=== PATIENT | male | born 1955 | race Caucasian/White ===

== ENCOUNTER → 2017-03-20 05:55 | Outpatient (CLI) | payer MEDICARE, SELFPAY ==
--- NOTE | 2017-03-20 10:59 | STRESSREP ---
Stress Test Report Date: 03/20/2017 Procedure: Pharmacologic stress nuclear imaging study Indications: Atrial fibrillation; preoperative cardiovascular evaluation Consent: Per the patient Procedure: The patient underwent pharmacologic (Regadenoson) evaluation with a peak heart rate of 100 bpm (63% predicted maximal heart rate) with a peak blood pressure 156/102 mmHg. The baseline ECG demonstrated normal sinus rhythm. The peak pharmacologic ECG demonstrated no obvious ECG changes. There were no cardiac dysrhythmias pretest or during infusion. There was rare PACs in recovery. There was no report of chest discomfort during pharmacologic infusion or recovery. The examination was discontinued secondary to completion of protocol. Impression: 1. Pharmacologic (Regadenoson) evaluation 2. Peak pharmacologic ECG with no obvious ECG changes 3. Rare PAC during recovery 4. Nuclear images pending Myocardial perfusion imaging study: Technique: The patient was injected with 14.4 mCi of technetium 99m Cardiolite and subsequently rest SPECT Cardiolite nuclear imaging was obtained in the horizontal long, vertical long, and short axis views. The patient underwent pharmacologic (Regadenoson) evaluation with a peak heart rate of 100 bpm (63% predicted maximal heart rate) with a peak blood pressure 156/102 mmHg area the patient was injected with 44.1 mCi of technetium 99m Cardiolite and subsequently stress SPECT Cardiolite nuclear imaging was obtained in the horizontal long, vertical long, and short axis views. A gated Cardiolite study at peak stress was obtained. Interpretation: Rest and stress SPECT cardiac nuclear imaging status post realignment, normalization, and attenuation correction demonstrates the appearance of relative uniform tracer uptake and myocardial perfusion appearing within normal limits. There is end systolic thickening and brightening. The gated Cardiolite study demonstrates myocardial thickening and inward wall motion. The reported LVEF is 76%. Impression: 1. Rest and stress SPECT Cardiolite nuclear imaging demonstrate relative uniform tracer uptake and myocardial perfusion appearing within normal limits. 2. The gated Cardiolite study reports an LVEF of 76%. This note was generated with [employer] software. Every effort was made to ensure accuracy, however, computerized auto dealership porter mistakes may persist.
--- NOTE | 2017-03-20 11:06 | STRESSREP_ITS ---
Stress Test Report Date: 03/20/2017 Procedure: Pharmacologic stress nuclear imaging study Indications: Atrial fibrillation; preoperative cardiovascular evaluation Consent: Per the patient Procedure: The patient underwent pharmacologic (Regadenoson) evaluation with a peak heart rate of 100 bpm (63% predicted maximal heart rate) with a peak blood pressure 156/102 mmHg. The baseline ECG demonstrated normal sinus rhythm. The peak pharmacologic ECG demonstrated no obvious ECG changes. There were no cardiac dysrhythmias pretest or during infusion. There was rare PACs in recovery. There was no report of chest discomfort during pharmacologic infusion or recovery. The examination was discontinued secondary to completion of protocol. Impression: 1. Pharmacologic (Regadenoson) evaluation 2. Peak pharmacologic ECG with no obvious ECG changes 3. Rare PAC during recovery 4. Nuclear images pending Myocardial perfusion imaging study: Technique: The patient was injected with 14.4 mCi of technetium 99m Cardiolite and subsequently rest SPECT Cardiolite nuclear imaging was obtained in the horizontal long, vertical long, and short axis views. The patient underwent pharmacologic (Regadenoson) evaluation with a peak heart rate of 100 bpm (63% predicted maximal heart rate) with a peak blood pressure 156/102 mmHg area the patient was injected with 44.1 mCi of technetium 99m Cardiolite and subsequently stress SPECT Cardiolite nuclear imaging was obtained in the horizontal long, vertical long, and short axis views. A gated Cardiolite study at peak stress was obtained. Interpretation: Rest and stress SPECT cardiac nuclear imaging status post realignment, normalization, and attenuation correction demonstrates the appearance of relative uniform tracer uptake and myocardial perfusion appearing within normal limits. There is end systolic thickening and brightening. The gated Cardiolite study demonstrates myocardial thickening and inward wall motion. The reported LVEF is 76%. Impression: 1. Rest and stress SPECT Cardiolite nuclear imaging demonstrate relative uniform tracer uptake and myocardial perfusion appearing within normal limits. 2. The gated Cardiolite study reports an LVEF of 76%. This note was generated with [employer] software. Every effort was made to ensure accuracy, however, computerized turf manager mistakes may persist.
== END ==
PROVIDERS: Family Provider Family Medicine; PCP Family Medicine; Visit Provider Internal Medicine Cardiovascular Disease
DX: Z01.810 Encounter for preprocedural cardiovascular examination (principal); I48.91 Unspecified atrial fibrillation
CPT/HCPCS: 78452; 93017; A9500; A4216; J2785

== ENCOUNTER → 2017-06-11 12:57 | Outpatient (CLI) | payer MEDICARE, SELFPAY ==
--- NOTE | 2017-06-11 12:59 | RAD_ITS ---
STUDY: X-RAY - PELVIS AND RIGHT HIP REASON FOR EXAM: Male, 62 years old. Right hip pain TECHNIQUE: Radiological exam, hip, unilateral, with pelvis when performed; 2 or 3 views. COMPARISON: None. FINDINGS: There is a non-specific bowel gas pattern. Normal visualized soft tissue structures. Normal bilateral iliac wings, sacroiliac joints and visualized sacrum. Normal bilateral superior and inferior pubic rami. Normal pubic symphysis. Normal bilateral ischial tuberosities. Normal visualized femoral head. Normal acetabulum. Normal hip joint. RAD/Hip 2-3 Views with Pelvis IMPRESSION: Normal x-ray examination of the pelvis and hip. Electronically Signed: Dimitrios Hull MD at 17:21 EDT , Service support ,
== END ==
PROVIDERS: Family Provider Family Medicine; PCP Family Medicine; Visit Provider Orthopaedic Surgery
DX: M25.551 Pain in right hip (principal)
CPT/HCPCS: 73502

== ENCOUNTER 2017-06-21 19:33 | Emergency (ER) | payer MEDICARE, SELFPAY ==
[2017-06-21 19:34] VITALS: BP 127/102; PULSE 93; RESP 20; TEMP 36.3; BMI 33.5
[2017-06-21] MEDS: morphine 8 MG/ML Syringe IM (20:04)
--- NOTE | 2017-06-21 20:14 | ED.DCSUM_ITS ---
- ER Visit Summary Date of Service: 06/21/17 Chief Complaint: Back and leg pain History of Present Illness: The patient is a 62 M presenting with chronic back and leg pain. He states he has low back pain radiating to both legs. He is in pain management with Dr. Headley. He states he has injections in his back which typically help his pain. He states the injection has worn off. He takes Vicodin and only has 2-3 pills left. He has an appointment with Dr. Headley on Friday. He has an MRI scheduled on Friday and then will follow up with Dr. Salamanca. He denies any bowel or bladder incontinence. No numbness or weakness. No recent injury. No fever, chills or other complaints. Physical Examination: Vitals are stable. Patient is afebrile. Alert no acute distress. HEENT exam is unremarkable. Neck is supple. Lungs are clear and equal bilaterally. Heart is regular rate and rhythm. Abdomen is soft nontender nondistended. Back: Low bilateral paraspinal lumbar muscle tenderness, no midline tenderness. Straight leg raise positive at 30? on the right. Extremities are unremarkable. Skin is warm and dry. No focal neurologic deficit. Normal strength and sensation Remainder of exam is unremarkable. Emergency Department Course and Treatment: Patient is given morphine, Zofran IM. He is advised to follow-up with pain management. Advised return to ED for worsening complaints. Disposition: Discharge home Impression: Acute on chronic back pain This note was generated with [employer] dictation software. It may contain incorrect words, spelling, and punctuation that were not noted in review of the chart prior to signing ED Disposition - Plan for ED Patient: Chief Complaint: Lower Extremity Injury Referrals: Prateek Lucio MD [Primary Care Provider] -
--- NOTE | 2017-06-21 20:38 | ED.DEP ---
ED Disposition - Plan for ED Patient: Chief Complaint: Lower Extremity Injury Instructions: ED Chronic Pain Management Referrals: Prateek Lucio MD [Primary Care Provider] - Beth Headley MD [STAFF PHYSICIAN] -
[2017-06-21 20:46] VITALS: BP 164/108; PULSE 74; RESP 18; O2SAT 97
== END 2017-06-21 20:48 | disposition home or self-care (01) ==
LOC: ED 20:17
PROVIDERS: Emergency Provider Emergency Medicine; Family Provider Family Medicine; PCP Family Medicine
DX: M54.5 Low back pain (principal); G89.29 Other chronic pain; M79.604 Pain in right leg; M79.605 Pain in left leg; G47.30 Sleep apnea, unspecified; Z72.0 Tobacco use; Z79.899 Other long term (current) drug therapy
CPT/HCPCS: 96372; 99282

== ENCOUNTER 2017-06-22 09:08 | Emergency (ER) | payer MEDICARE, SELFPAY ==
[2017-06-22 09:09] VITALS: BP 156/111; PULSE 81; RESP 18; TEMP 36.9; O2SAT 96; BMI 30.4
--- NOTE | 2017-06-22 09:27 | ED.DCSUM_ITS ---
- ER Visit Summary Date of Service: 06/22/17 Chief Complaint: [] Acute recurrent right low back pain History of Present Illness: The patient is a 62 M [] patient is a long history of low back pain multiple other arthritic complaints, a titanium plate in his right leg he is managed by multiple physicians including Dr. de león of pain management, he indicates he receives 50 different type of injections to his body secondary to all the pain that he has usually received a lumbar spine injection every 3 months that helps with his back pain, he is due to have that injection soon, he also reports the pain from his lumbar back radiates to his right leg he seen orthopedics and has been told the muscle there may have atrophied or there could be a problem with the muscle and he is scheduled to have an MRI next week he basically indicates he has recurrence of his pain since last lumbar back injection was 3 months ago he scheduled to see his pain management physician tomorrow he reports he was seen yesterday in the emergency department had injection of morphine that wore off and he wants to be remedicated he indicates these are not new symptoms are all the same he has had no fever cough chest pain no difficulty with any of his daily activities usually walks with a cane normal bowel bladder habits Physical Examination: [] In no distress he is up walking around the room with his cane he has difficulty standing on his toes because of the plate in his leg he can heel raise knee bend walk around the room is no signs of cauda equina he basically takes his hand and draws across the right buttock into the thigh he has full range of motion of the right lower extremity and left lower extremity there is no neurologic abnormalities no signs of cauda equina his lungs are clear heart tones are normal abdomen soft nontender his upper lower extremity exam cranial nerve exam head exam unremarkable Test Results: [] Emergency Department Course and Treatment: [] I had a long conversation with this patient I explained to him that this seems like a chronic condition and the chronic pain management cannot be assumed from the emergency department secondary to multiple regulations from the state [facility] etc. and that if he needs pain management he must obtain that from his outpatient physicians given that it is the weekend and he cannot reach them he will be medicated with morphine 8 mg subcu ?1 and I further explained to him should he return to the emergency department it is likely that we will not be able at that time to provide him any type of further narcotic pain management he understands and agrees Treatment Plan: [] Disposition: [] Home stable Impression: [] Acute recurrent lumbar spine pain, history of chronic pain see above This note was generated with [employer] dictation software. It may contain incorrect words, spelling, and punctuation that were not noted in review of the chart prior to signing ED Disposition - Plan for ED Patient: Chief Complaint: Lower Extremity Injury Referrals: Prateek Lucio MD [Primary Care Provider] -
--- NOTE | 2017-06-22 09:27 | ED.DEP ---
ED Disposition - Plan for ED Patient: Chief Complaint: Lower Extremity Injury Instructions: ED Sciatica Referrals: Prateek Lucio MD [Primary Care Provider] -
[2017-06-22] MEDS: morphine 8 MG/ML Syringe SC (09:35)
[2017-06-22] MEDS: Ondansetron ODT 4 MG Tablet PO (09:35)
[2017-06-22 10:02] VITALS: BP 158/92; PULSE 87; RESP 16; O2SAT 100
== END 2017-06-22 10:03 | disposition home or self-care (01) ==
PROVIDERS: Emergency Provider Emergency Medicine; Family Provider Family Medicine; PCP Family Medicine
DX: M54.5 Low back pain (principal); G89.29 Other chronic pain; M19.90 Unspecified osteoarthritis, unspecified site; Z96.89 Presence of other specified functional implants; Z79.82 Long term (current) use of aspirin; Z79.899 Other long term (current) drug therapy
CPT/HCPCS: 96372; 99282

== ENCOUNTER → 2017-06-24 06:43 | Outpatient (CLI) | payer MEDICARE, SELFPAY ==
--- NOTE | 2017-06-24 06:45 | MRI_ITS ---
STUDY: MRI RIGHT HIP REASON FOR EXAM: Male, 62 years old. Femoral acetabular impingement with gluteal tendinitis of the right buttock and right hip pain. TECHNIQUE: Standardized fat and water weighted pulse sequences were obtained in all 3 orthogonal planes. COMPARISON: Radiographs of pelvis and right hip dated June 11, 2017. FINDINGS: There is mild articular narrowing of the hip joint, with less than 50% loss of the hyaline cartilage. There is irregular contour to the superior acetabulum suggesting sequela of degenerative change. Normal labrum. There is focal contour deformity of the anterior femoral neck, likely predisposing the patient to femoral acetabular impingement. There are also osteophytes arising from the femoral head. Normal femoral neck and intratrochanteric region. There is a small right hip effusion. Normal gluteus minimus, medius and iliopsoas tendons and distal insertions. There is no trochanteric, iliopsoas or iliopectineal bursitis. Normal superior and inferior pubic rami. There is narrowing of the pubic symphysis with spurring. Normal ischial tuberosity. Normal origin of the hamstring tendons. Normal visualized iliac wing, sacroiliac joint, and sacral ala. There mild degenerative changes of the left hip with osteophyte formation and joint space narrowing. Normal visualized soft tissue structures of the pelvis. MRI/Lower Ext Joint Only (Routine) IMPRESSION: 1. MR findings suggest sequela of and predisposition to right-sided femoral acetabular impingement. 2. Small right hip effusion. Electronically Signed: Jesenia Link MD at 12:02 EDT , Service support ,
== END ==
PROVIDERS: Family Provider Family Medicine; PCP Family Medicine; Visit Provider Orthopaedic Surgery
DX: M76.01 Gluteal tendinitis, right hip (principal); M25.859 Other specified joint disorders, unspecified hip
CPT/HCPCS: 73721

== ENCOUNTER 2017-07-26 15:37 | Emergency (ER) | payer MEDICARE, SELFPAY ==
--- NOTE | 2017-07-26 15:37 | DT_ITS ---
This patient was seen during an EMR downtime July 21, 2017 - July 28, 2017. This patient may have a combination of paper and electronic documentation or all paper documentation. All documentation is viewable within the e-chart portion of [facility] for each patient visit.
== END 2017-07-26 16:05 | disposition home or self-care (01) ==
LOC: ED 07-27 14:17
PROVIDERS: Emergency Provider Emergency Medicine; Family Provider Family Medicine; PCP Family Medicine
DX: M25.551 Pain in right hip (principal); M54.9 Dorsalgia, unspecified; G47.33 Obstructive sleep apnea (adult) (pediatric); M19.90 Unspecified osteoarthritis, unspecified site; Z79.891 Long term (current) use of opiate analgesic
CPT/HCPCS: 96372; 99283

== ENCOUNTER 2017-07-28 11:31 | Emergency (ER) | payer MEDICARE, SELFPAY ==
--- NOTE | 2017-07-28 11:31 | DT_ITS ---
This patient was seen during an EMR downtime July 21, 2017 - July 28, 2017. This patient may have a combination of paper and electronic documentation or all paper documentation. All documentation is viewable within the e-chart portion of [facility] for each patient visit.
[2017-07-28 11:33] VITALS: BP 170/81; PULSE 92; RESP 16; TEMP 35.8; BMI 32.6
--- NOTE | 2017-07-28 12:19 | ED.VIS.GEN ---
History of Present Illness Chief Complaint: Back Informant: Patient, Family Onset: Days - 4 Context: Gradual Onset Timing: Continuous Quality: ache Location: Right low back and hip with radiation down the right lower extremity to ila Current Severity: Severe Maximum Severity: Severe Worsened by: Weightbearing/movement Relieved by: Rest, Dilaudid Associated Symptoms: Sciatica. No bowel or bladder dysfunction, no groin paresthesias. Narrative: Patient has chronic low back and hip pain with sciatica that has been worse for no apparent reason for the past 4 days or so. He was seen here recently and had a shot of Dilaudid which really helped, and actually kept him comfortable for a couple of days, but the pain is worse now again. Same symptoms, nothing new. No recent injury. Is following with Dr. Salinas with orthopedics for this, and is being scheduled for arthroscopic hip surgery with repair of gluteus medius and minimus, bursectomy, and release of iliotibial band. He follows with Dr. Headley as well. Prior similar symptoms: Yes - Past Medical History (1) Sciatica Status: Chronic (2) Bursitis of right hip Status: Chronic (3) Essential hypertension Status: Chronic (4) Paroxysmal a-fib Status: Chronic (5) Arthritis Status: Chronic (6) Cervical spine degeneration Status: Chronic (7) Cervical spondylosis Status: Chronic Past Medical History - Allergies and Home Meds Allergies/Adverse Reactions: Allergies oxycodone HCl [From Percocet] Adverse Reaction (Verified 07/28/17 11:34) Vomiting Primary Care Physician: Prateek Lucio MD [Primary Care Provider] - Prabhakar Adair MD [NON-STAFF] - Keep Caryl appointment Lives: Spouse/ Significant Other Smoking Status: Smoker, status unknown - Family History Maternal Family History: Family History (Last Reviewed 06/11/17 @ 15:25 by Mack Edwards) Mother Cancer Father CVA (cerebral vascular accident) Family History: Reports: No pertinent history Review of Systems All systems negative except as indicated Musculoskeletal: Reports: Back pain, Extremity Pain - R hip and groin Physical Exam Vital Signs/Narrative: Vital Signs Temp Pulse Resp BP 07/28/17 11:33 96.4 F L 92 16 170/81 H Inital Vital Signs reviewed: Yes General: Well nourished, Well developed, - - Uncomfortable in pain, NAD. Head: Normocephalic, Atraumatic Eyes: Perrl, EOMI ENT: Moist mucous membranes, No rhinorrhea Abdomen: Soft, Nontender, Nondistended Extremities: Tenderness - R greater trochanter very tender. easy passive ROM R hip w/o significant pain. Skin: Normal color, No rash Neurological: Alert, Oriented x3, Cranial nerves II-XII grossly intact, Normal Strength, Normal Sensation, Normal DTR, - - antalgic gait, uses cane, able. Psychological: Normal affect Diagnostic/Tx/Re-eval - Medical Decision Making Improved after Dilaudid and prophylactic Zofran. We will continue to follow-up as scheduled tomorrow. There are no signs or symptoms of cauda equina syndrome to require emergent imaging of this, he states he has had an MRI in the recent past, which helped to diagnose his issues. ED Disposition - Plan for ED Patient: Disposition: Home or Assisted Living Chief Complaint: Back Diagnosis: Acute exacerbation of chronic low back pain, Bursitis of right hip Instructions: ED Sciatica, ED Bursitis Referrals: Prateek Lucio MD [Primary Care Provider] - Prabhakar Adair MD [NON-STAFF] - Keep Caryl appointment
--- NOTE | 2017-07-28 12:54 | ED.RN ---
unable to obtain dilaudid . pharmacy states please use 0.5 mg. verified with eleno argueta
[2017-07-28] MEDS: HYDROmorphone 0.5 MG/0.5 ML SYRINGE 2 MG IM (12:56)
[2017-07-28] MEDS: Ondansetron ODT 4 MG Tablet 8 MG PO (13:19)
== END 2017-07-28 14:11 | disposition home or self-care (01) ==
LOC: ED 12:36
PROVIDERS: Emergency Provider Emergency Medicine; Family Provider Family Medicine; PCP Family Medicine
DX: M54.40 Lumbago with sciatica, unspecified side (principal); G89.29 Other chronic pain; M70.71 Other bursitis of hip, right hip; Y93.9 Activity, unspecified; M50.30 Other cervical disc degeneration, unspecified cervical region; M47.812 Spondylosis without myelopathy or radiculopathy, cervical region; I10 Essential (primary) hypertension; I48.0 Paroxysmal atrial fibrillation; M19.90 Unspecified osteoarthritis, unspecified site; F17.200 Nicotine dependence, unspecified, uncomplicated
CPT/HCPCS: 96372; 99283

== ENCOUNTER 2017-08-04 19:11 | Emergency (ER) | payer MEDICARE, SELFPAY ==
[2017-08-04 19:12] VITALS: BP 155/109; PULSE 68; RESP 16; TEMP 36.3; O2SAT 97; BMI 33.4
--- NOTE | 2017-08-04 21:42 | ED.RN ---
PT NAME CALLED AT 2100 WITH NO RESPONSE. CHECKED ER RAMP AND WAITING ROOM. PT MARKED LWBS
== END 2017-08-04 21:45 | disposition left against medical advice (07) ==
LOC: ED 22:28
PROVIDERS: Emergency Provider Emergency Medicine; Family Provider Family Medicine; PCP Family Medicine
DX: M79.606 Pain in leg, unspecified (principal); M79.1 Myalgia; G89.29 Other chronic pain

== ENCOUNTER 2017-12-09 10:00 | Outpatient (RCR) | payer MEDICARE, SELFPAY ==
--- NOTE | 2017-10-23 11:08 | HP.PTEVAL ---
Patient's Visit Information IVAN PETERS is a 62 year old M referred to Physical Therapy by Georges Mccauley with a diagnosis of Hip scope with glute medius repair. Date of Evaluation: 10/22/17 Physical Therapist: Viral Diallo - Visit Plan Frequency: 1-2x /Week Duration: 8 weks Plan: Start with R hip ROM, gait progression. Progress per protocol. Pt. requested to trial pool. I talked to him about requesting this intervention from physician. I agree with pool for a few weeks to progress gait tolerance and ROM. Progressing to land per protocol. Requested this intervention from physician this date. - Subjective Subjective: Pt. is here today for his initial evaluation with diagnosis of R glute med tear with surgical repair. Pt. had surgery on 08/21/17 and had been doing PT at alternate site. Pt. wanted to start doing his PT closer to home. Pt. arrives today with crutches and has been using since surgery. He also reports recent L foot pain after have bones shifted during PT. Pt. had xray without fracture. Pt. reports using WC at times as well. He denies N/T in either LE, except for peripheral neuropathy in feet. He has a history of DDD throughout his spine. He reports doign some stretching at home, but not much. He was doing to PT weekly previously. Pt. continues to report having posterior lateral hip pain with all mobility. He is doing most activities in his hope without issues. Pt. only walks short distances secondary to pain and will use motor wc in grocery stores and standard wc with larger community mobility. Pt. is hopeful to reduce symptoms in order to get back to all recreational activtieis without issues. - Pain R hip Pain Intensity (Out of 10): 4 Pain Intensity Range: 0, 8 L foot Pain Intensity (Out of 10): 4 Pain Intensity Range: 2, 8 - Objective POSTURE: Pt. is able to stand without ADs with wt. L sided wt. shift. Pt. reports no increase in hip pain in stance, but does have increased L foot pain. PALPATION: Pt. has well healing incisions as R hip, he has steristrips on anterior incisions. No signs of infection. Pt. has increased tenderness at lateral hip and greater trochanter. Pt. has no IT band pain and no glute max tenderness. NEURO: normal sensation except bilateral feet (baseline). Pt. has 2+ patellar and achilles DTR bilateraly. Pt. is able to rise on heels and toes with balance aid, increased with toes on LLE. ROM: R hip- flexion 120deg, abd 45deg, ext 10deg, IR 10deg increase NW, ER 45eg (tightness). Pt. has normal L hip ROM. Normal bilateral knee ROM. Decreased lumbar ROM into all motions. MMT: LLE- ankle 5/5 throughout; knee- 5-/5; hip- flexion 4/5 abd 4/5, ext 4/5. RLE- ankle 5/5 throughout; knee- ext 5-/5, felxion 5-/5; hip- flexion 4-/5, abd 3/5 ext 4-/5 Pt. reports mild increase in symptoms with all MMT of R hip. GAIT: Pt. uses B crutches with ambulation. He is increasing WBing on bilateral LEs, but is unwilling to trial single crutch at this point in time. Pt. has decreased step length bilaterally. Pt. has not [place] movements. Pt. did not trial stairs this date. - Goals Goal 1:: Pt. to be I with HEP. Goal Time Frame: 4-6 Weeks Goal 2:: Pt. to have full R hip ROM without increase in symptoms. Goal Time Frame: 4-6 Weeks Goal 3:: Pt. to have increased R hip strength by 1/2 grade in order to complete all functional mobility with increased stability/control. Goal Time Frame: 4-6 Weeks Goal 4:: Pt. to ambuate without AD unlimited distances without increase in symptoms. Goal Time Frame: 4-6 Weeks Goal 5:: Pt. to negotiate steps with 1 HR with reciprocal pattern without increase in symptoms. Goal Time Frame: 4-6 Weeks Goal 6:: Pt. sleep throughout the night without increase in symptoms. Goal Time Frame: 4-6 Weeks - Rehabilitation Potential Physical Therapy Diagnosis: Pt. has signs and symptoms consistent with glute medius repair. He is slightly behing in his recovery, but as expected due to multiple co morbidities. Pt. had difficulty walking, increased pain, decreased strength and decreased functional mobility. He would benefit from PT to address above limitations. Rehabilitation Potential: Good - Anticipated Interventions Patient/Client Instruction: Educate patient on: Condition, Plan of Care, Risk Factors, Benefits of Fitness Program For the Purpose of:: To improve safety, To improve health and function, To foster healthy habits, To improve decision making, To improve self management, To prevent re-injury, To improve ability to perform tasks related to life management, To improve tolerance to ADL's Therapeutic Exercise to Include: Strength training, Power training, Endurance training, Body mechanics, Postural training, Flexibilty training, Gait and locomotor training, In an aquatic setting, Passive ROM, Active ROM For the Purpose of:: To decrease pain, To decrease swelling/inflammation, To increase ROM, To improve nutrient delivery to tissue, To improve muscle performance and motor function, To improve ability to perform ADL's, To increase tolerance to activity/condition/position, To improve gait and locomotor functions, To improve health of tissue, To decrease soft tissue restriction, To increase flexibility/ROM, To improve safety with gait TENS: Yes IF ES: Yes Cryotherapy (ice pack, ice massage): Yes For the Purpose of:: To decrease pain, To decrease swelling/inflammation, To increase ROM Thank you for the opportunity to evaluate your patient. For Medicare and Medicare HMO plans, please review the plan of care and approve it. It will need to be FAXED BACK to us at [phone] for Medicare purposes. Please let me know if there are questions or concerns regarding this plan of care. Physician Signature: Date:
--- NOTE | 2017-12-09 15:31 | HP.PTREVAL_ITS ---
Georges Mccauley, It has been my pleasure to treat IVAN PETERS over the last 3 visits for Hip scope with glute medius repair. Please see the progress note below for an update on the physical therapy plan of care! Subjective: Pt. reports I am just sore all over. Pt. reports having 5/10 pain in hip and back. Pt. reports being HEP compliant at times. He did miss the last 3 weeks due to having pneumonia. Pt. reports feeling better. Objective/Function: R hip ROM- flexion 120deg, abd 45deg, ext 10deg, ER 45deg, IR 30deg. Pt. reports mild increase in symptoms with abduction and ER motions. MMT- R hip- flexion 4+/5, abd 4/5, ext 4/5, add 5/5. Core strength- poor+. GAIT: Pt. ambulates with a cane HALINA. Pt. has increased step length and increased control. Decrease lateral hip translation during stance phase. STAIRS: Pt. uses 1 HR with reciprocal pattern without issues. Plan Plan: Extend time for POC. Requesting extended time to complete POC due to patient being seick for 3 weeks missing PT during this time. Focus on hip core stability exercses. Goals Goal 1:: Pt. to be I with HEP. Goal Time Frame: 4-6 Weeks Goal Progress: Goal Met Goal 2:: Pt. to have full R hip ROM without increase in symptoms. Goal Time Frame: 4-6 Weeks Goal Progress: Goal Met Goal 3:: Pt. to have increased R hip strength by 1/2 grade in order to complete all functional mobility with increased stability/control. Goal Time Frame: 4-6 Weeks Goal Progress: Progressing Goal 4:: Pt. to ambuate without AD unlimited distances without increase in symptoms. Goal Time Frame: 4-6 Weeks Goal Progress: Progressing Goal 5:: Pt. to negotiate steps with 1 HR with reciprocal pattern without increase in symptoms. Goal Time Frame: 4-6 Weeks Goal Progress: Progressing Goal 6:: Pt. sleep throughout the night without increase in symptoms. Goal Time Frame: 4-6 Weeks Goal Progress: Progressing Anticipated Interventions Patient/Client Instruction: Educate patient on: Condition, Plan of Care, Risk F actors, Benefits of Fitness Program For the Purpose of:: To improve safety, To improve health and function, To foster healthy habits, To improve decision making, To improve self management, To prevent re-injury, To improve ability to perform tasks related to life management, To improve tolerance to ADL's Therapeutic Exercise to Include: Strength training, Power training, Endurance training, Body mechanics, Postural training, Flexibilty training, Gait and locomotor training, In an aquatic setting, Passive ROM, Active ROM For the Purpose of:: To decrease pain, To decrease swelling/inflammation, To increase ROM, To improve nutrient delivery to tissue, To improve muscle performance and motor function, To improve ability to perform ADL's, To increase tolerance to activity/condition/position, To improve gait and locomotor functions, To improve health of tissue, To decrease soft tissue restriction, To increase flexibility/ROM, To improve safety with gait TENS: Yes IF ES: Yes Cryotherapy (ice pack, ice massage): Yes For the Purpose of:: To decrease pain, To decrease swelling/inflammation, To increase ROM Please do not hesitate to contact me at [phone] by phone or if you have questions or concerns regarding this new plan of care! Sincerely, Viral Diallo
--- NOTE | 2018-05-22 09:43 | HP.PT.NRP ---
HP - Discharge Summary (1) - Patient Information IVAN PETERS was seen in my office for initial evaluation on 10/22/17. The following Plan of Care was established for this patient: Initial Frequency: 1-2x /Week Initial Duration: 8 weks - Anticipated Interventions Patient/Client Instruction: Educate patient on: Condition, Plan of Care, Risk Factors, Benefits of Fitness Program For the Purpose of:: To improve safety, To improve health and function, To foster healthy habits, To improve decision making, To improve self management, To prevent re-injury, To improve ability to perform tasks related to life management, To improve tolerance to ADL's Therapeutic Exercise to Include: Strength training, Power training, Endurance training, Body mechanics, Postural training, Flexibilty training, Gait and locomotor training, In an aquatic setting, Passive ROM, Active ROM For the Purpose of:: To decrease pain, To decrease swelling/inflammation, To increase ROM, To improve nutrient delivery to tissue, To improve muscle performance and motor function, To improve ability to perform ADL's, To increase tolerance to activity/condition/position, To improve gait and locomotor functions, To improve health of tissue, To decrease soft tissue restriction, To increase flexibility/ROM, To improve safety with gait TENS: Yes IF ES: Yes Cryotherapy (ice pack, ice massage): Yes For the Purpose of:: To decrease pain, To decrease swelling/inflammation, To increase ROM This patient was last seen in our office 12/09/17. Pertinent comments regarding their Physical therapy will appear below: Pt. was evaluated for her hip labral repair. Pt. was to do therapy in aquatic setting. Pt. attended 1 visit over a 1 month period due to illness and did not attend any further PT visits. Pt. has not been seen in several months and will be DC from PT at this point in time. At this point I will be discontinuing this patient from physical therapy. I would be happy to see this patient again in the future if found appropriate by the physician. Thank you! YOLANDA CarrionT
== END 2017-12-09 19:00 | disposition home or self-care (01) ==
LOC: PT 10:00
PROVIDERS: Family Provider Family Medicine; PCP Family Medicine; Visit Provider Orthopaedic Surgery Sports Medicine
DX: M67.98 Unspecified disorder of synovium and tendon, other site (principal)
CPT/HCPCS: 97113; 97162

== ENCOUNTER → 2018-07-02 11:38 | Outpatient (CLI) | payer MEDICARE, SELFPAY ==
[2018-06-25 14:30] VITALS: BMI 33.1
--- NOTE | 2018-07-02 11:44 | CT_ITS ---
STUDY: CT ABDOMEN AND PELVIS WITH CONTRAST REASON FOR EXAM: Male, 63 years old. Right inguinal hernia RADIATION DOSAGE (If Supplied By Facility): CTDIvol = ( 21.93 ) mGy, DLP = ( 1923.98 ) mGycm TECHNIQUE: Transaxial images were obtained from the dome of the diaphragm to the symphysis pubis with oral contrast. 100CC IV/Oral Isovue 300 was administered. Sagittal and coronal images were reconstructed. Individualized dose optimization techniques were used for this CT. COMPARISON: None. FINDINGS: The visualized lung bases are unremarkable. The visualized portions of the heart are within normal limits. There is decreased attenuation of the liver consistent with steatosis. Subcentimeter cyst in the right hepatic lobe. Probable cholelithiasis. Normal spleen. Normal pancreas. Normal bilateral adrenal glands. Normal right kidney. Left peripelvic renal cysts. Normal visualized stomach. Normal small intestine. There are multiple colonic diverticula consistent with diverticulosis. The appendix is visualized and appears normal. Normal abdominal aorta. Normal inferior vena cava. Normal retroperitoneum. Normal urinary bladder. There are prostatic calcifications. 35 x 17 mm sebaceous cyst in the subcutaneous tissues of the right side of the back. Lower abdominal wall hernia mesh. Normal osseous structures. CT/Abdomen/Pelvis WITH Contrast IMPRESSION: No evidence of recurrent or residual inguinal hernia. No evidence of acute intestinal pathology or acute obstructive uropathy. Probable cholelithiasis. Electronically Signed: Saurabh Oviedo MD at 23:35 EDT Tel , Service support ,
[2018-07-02 13:56] LABS: CREATININE FINGERSTICK 1.2 mg/dL (0.70-1.30)
== END ==
PROVIDERS: Family Provider Family Medicine; PCP Family Medicine
DX: Z01.812 Encounter for preprocedural laboratory examination (principal); K40.91 Unilateral inguinal hernia, without obstruction or gangrene, recurrent
CPT/HCPCS: 74177; Q9967

== ENCOUNTER → 2018-09-04 09:59 | Outpatient (CLI) | payer MEDICARE, SELFPAY ==
[2018-06-25 14:30] VITALS: BMI 33.1
--- NOTE | 2018-09-04 10:05 | RAD_ITS ---
STUDY: X-RAY - PELVIS REASON FOR EXAM: Male, 63 years old. Inflammatory polyarthropathy. TECHNIQUE: One view of the pelvis was obtained. COMPARISON: None. FINDINGS: There is a non-specific bowel gas pattern. Evidence of prior bilateral inguinal hernia repair. There is narrowing with cortical sclerosis and osteophyte formation of the sacroiliac joint consistent with degenerative osteoarthritic changes. Normal visualized bilateral superior and inferior pubic rami. Normal pubic symphysis. Normal ischial tuberosities. Normal visualized right femoral head. Normal right acetabulum. There is moderate articular joint space narrowing of the right hip. Normal visualized left femoral head. Normal left acetabulum. There is moderate articular joint space narrowing of the left hip. RAD/Pelvis 1 or 2 Views IMPRESSION: Degenerative changes of both hip joints. No erosive changes are seen. Electronically Signed: Michael Willson, at 12:34 EDT , Service support ,
[2018-09-04 11:01] LABS: Erythrocyte Sedimentation Rate 1 mm/hr (0-20)
[2018-09-04 11:03] LABS: Absolute Lymphocyte Count 2.39 X10^3/uL (0.83-4.51); Absolute Neutrophil Count 5.4 X10^3/uL (2.0-7.7); Basophil# 0.05 X10^3/uL; Basophil% 0.6 % (0-1); Eosinophil# 0.27 X10^3/uL; Eosinophils% 3.1 % (0-5); Hematocrit 48.3 % (40-54); Hemoglobin 15.9 g/dL (13.0-16.5); Lymphocyte # 2.39 X10^3/ul (4.0); Lymphocyte % 27.8 % (19-41); Mean Corp Hgb Conc 32.9 g/dL (32-36); Mean Corpuscular Hgb 29.6 pg (27.0-32.0); Mean Corpuscular Volume 89.9 fL (80-94); Mean Platelet Vol. 11.1 fl (6.2-12.0); Monocyte# 0.46 X10^3/uL; Monocyte% 5.3 % (0-10); NRBC Flagged by Analyzer 0 % (0-5); Neutrophil # 5.41 X10^3/uL (2.7-7.7); Neutrophil % 62.9 % (47-70); Platelet Count 209 K/mm3 (150-450); RBC Distribution Width CV 12.8 % (11.6-14.6); RBC Distribution Width SD 41.9 fl (35.1-43.9); Red Blood Count 5.37 M/mm3 (4.6-6.2); White Blood Count 8.6 K/mm3 (4.4-11.0)
[2018-09-04 11:21] LABS: ALB/GLOB Ratio 1.5 RATIO (0.9-2.4); AST(SGOT) 13 U/L (15-37); Alanine Aminotransfer ALT/SGPT 28 U/L (16-61); Albumin, Serum 4.3 g/dL (3.2-5.0); Alkaline Phosphatase 33 U/L (45-117); Anion Gap 5 (5-15); BUN 22 mg/dL (7-18); BUN/Creat Ratio 21.4 RATIO (10-20); CRP < 2.90 mg/L (0.0-3.0); Calcium,Total 8.9 mg/dL (8.5-10.1); Chloride 103 mmol/L (98-107); Creatinine, Serum 1.03 mg/dL (0.70-1.30); EST Glomerular Filtration Rate 77 mL/min (>60); Est Glom Filt Rate - Afr Amer 94 mL/min (>60); Globulin 2.9 g/dL (2.2-4.2); Glucose 104 mg/dL (74-106); Potassium 4.2 mmol/L (3.5-5.1); Protein, Total 7.2 g/dL (6.4-8.2); Rheumatoid Factor < 10.0 IU/mL (<15); Sodium Level 140 mmol/L (136-145)
[2018-09-04 12:11] LABS: Hepatitis B Surface Antibody Non-Reactive; Hepatitis B Surface Antigen Non-Reactive (Nonreactive); Hepatitis C Antibody Non-Reactive (Nonreactive)
[2018-09-08 17:18] LABS: ANTINUCLEAR ANTIBODIES DIRECT Negative (Negative)
[2018-09-11 11:23] LABS: CCP IgG Antibodies 3 units (0-19); HLA B27 Negative (.); Hepatitis B Core AB IgM Negative (Negative)
== END ==
PROVIDERS: Family Provider Family Medicine; PCP Family Medicine; Referring Provider Internal Medicine Rheumatology; Visit Provider Internal Medicine Rheumatology
DX: M06.4 Inflammatory polyarthropathy (principal); M79.7 Fibromyalgia; Q66.7 Congenital pes cavus; I10 Essential (primary) hypertension; G43.909 Migraine, unspecified, not intractable, without status migrainosus; N40.1 Benign prostatic hyperplasia with lower urinary tract symptoms; G47.33 Obstructive sleep apnea (adult) (pediatric); F32.89 Other specified depressive episodes
CPT/HCPCS: 36415; 72170; 80053; 81374; 85025; 85652; 86038; 86140; 86200; 86431; 86705; 86706; 86803; 87340

== ENCOUNTER → 2018-11-02 09:17 | Outpatient (CLI) | payer MEDICARE, SELFPAY ==
[2018-06-25 14:30] VITALS: BMI 33.1
[2018-11-02 10:07] LABS: Absolute Lymphocyte Count 1.82 X10^3/uL (0.83-4.51); Absolute Neutrophil Count 8.3 X10^3/uL (2.0-7.7); Basophil# 0.03 X10^3/uL; Basophil% 0.3 % (0-1); Eosinophil# 0.15 X10^3/uL; Eosinophils% 1.4 % (0-5); Hematocrit 46.9 % (40-54); Hemoglobin 15.4 g/dL (13.0-16.5); Lymphocyte # 1.82 X10^3/ul (4.0); Lymphocyte % 16.8 % (19-41); Mean Corp Hgb Conc 32.8 g/dL (32-36); Mean Corpuscular Hgb 30.6 pg (27.0-32.0); Mean Corpuscular Volume 93.1 fL (80-94); Mean Platelet Vol. 10.4 fl (6.2-12.0); Monocyte# 0.49 X10^3/uL; Monocyte% 4.5 % (0-10); NRBC Flagged by Analyzer 0 % (0-5); Neutrophil # 8.25 X10^3/uL (2.7-7.7); Neutrophil % 76.3 % (47-70); Platelet Count 232 K/mm3 (150-450); RBC Distribution Width CV 13.7 % (11.6-14.6); RBC Distribution Width SD 46.6 fl (35.1-43.9); Red Blood Count 5.04 M/mm3 (4.6-6.2); White Blood Count 10.8 K/mm3 (4.4-11.0)
[2018-11-02 10:39] LABS: ALB/GLOB Ratio 1.3 RATIO (0.9-2.4); AST(SGOT) 17 U/L (15-37); Alanine Aminotransfer ALT/SGPT 33 U/L (16-61); Albumin, Serum 3.9 g/dL (3.2-5.0); Alkaline Phosphatase 27 U/L (45-117); Anion Gap 7 (5-15); BUN 17 mg/dL (7-18); BUN/Creat Ratio 16.3 RATIO (10-20); Calcium,Total 8.7 mg/dL (8.5-10.1); Chloride 103 mmol/L (98-107); Creatinine, Serum 1.04 mg/dL (0.70-1.30); EST Glomerular Filtration Rate 77 mL/min (>60); Est Glom Filt Rate - Afr Amer 93 mL/min (>60); Globulin 2.9 g/dL (2.2-4.2); Glucose 107 mg/dL (74-106); Potassium 4.3 mmol/L (3.5-5.1); Protein, Total 6.8 g/dL (6.4-8.2); Sodium Level 141 mmol/L (136-145)
== END ==
PROVIDERS: Family Provider Family Medicine; PCP Family Medicine; Referring Provider Internal Medicine Rheumatology; Visit Provider Internal Medicine Rheumatology
DX: M06.4 Inflammatory polyarthropathy (principal); I10 Essential (primary) hypertension; M79.7 Fibromyalgia; Q66.7 Congenital pes cavus; F32.89 Other specified depressive episodes
CPT/HCPCS: 36415; 80053; 85025

== ENCOUNTER 2018-12-05 13:18 | Emergency (ER) | payer MEDICARE, SELFPAY ==
[2018-06-25 14:30] VITALS: BMI 33.1
[2018-12-05 13:20] VITALS: BP 155/97; PULSE 65; RESP 16; TEMP 36.6; O2SAT 98; BMI 33.8
--- NOTE | 2018-12-05 13:43 | ED.VISSUMM ---
- ER Visit Summary Date of Service: 12/05/18 Chief Complaint: Right groin pain History of Present Illness: The patient is a [address] Archie sorensen. He reports that he had a hernia repair in June 2016. This was performed by Dr. Brown. He reports he has had pain in the right inguinal region ever since. He states it has been worsened lately. It is a sharp pain that is 9 out of 10 with sitting, movement, or standing. Is 2 out of 10 at rest. He is not on any pain medication. He reports these had paresthesias in the proximal thigh since 2017 as well. He denies any new paresthesias. He denies any trauma. No fall, MVA, or change in activity. Patient does report he has lower back pain as well. He had an MRI 2 weeks ago at [facility] as scheduled for a lumbar fusion. He does not remember the surgeon's name. He denies any problems with his bowels or his bladder. No groin numbness. Physical Examination: Vitals: Stable. Afebrile. General: A&O x 3. NAD. Cardiovascular exam: Regular rate and rhythm, no murmur, rub or gallop. Respiratory exam: Clear to auscultation bilaterally. No wheezes or stridor. Abdominal exam: Soft, nontender, nondistended, normal bowel sounds. No peritoneal signs. Back: Diffuse moderate tenderness to palpation over the lumbar spine and the paraspinous musculature in the lumbar region. No point tenderness. Negative straight leg bilaterally. 5/5 DF, PF, EHL bilaterally. Normal sensation to light touch throughout. Extremity: No clubbing, cyanosis, or edema. Emergency Department Course and Treatment: An OARRS report was obtained which was negative. He was given a dose of morphine here. Treatment Plan: The patient will be discharged prescription for 10 [place]. Instructed to contact Dr. Archie sorensen and/or his back surgeon for further treatment of his chronic pain. Return to the emergency department for any worsening symptoms. Disposition: To home in improved and stable condition. Impression: 1. Chronic right inguinal pain. This note was generated with [employer] software. It may contain incorrect words, spelling, and punctuation that were not noted in review of the chart prior to signing ED Disposition - Plan for ED Patient: Instructions: BACK PAIN (Acute or Chronic) Prescriptions: Hydrocodone Bitart/Apap 5-325 [[place] 5MG-325MG] 1 tablet PO Q4H PRN PRN 2 Days #10 tablet PRN Reason: Pain Referrals: Prateek Lucio MD [Primary Care Provider] - 2 Days
[2018-12-05] MEDS: morphine 8 MG/ML Syringe IM (14:03)
[2018-12-05 14:21] VITALS: BP 156/108; PULSE 60; RESP 17; O2SAT 98
--- NOTE | 2018-12-05 14:22 | ED.RN ---
NO REACTION AT INJECTION SITE.
== END 2018-12-05 14:22 | disposition home or self-care (01) ==
LOC: ED 13:47
PROVIDERS: Emergency Provider Emergency Medicine; Family Provider Family Medicine; PCP Family Medicine
DX: R10.31 Right lower quadrant pain (principal); M54.5 Low back pain; G89.29 Other chronic pain; I48.91 Unspecified atrial fibrillation; I10 Essential (primary) hypertension; G43.909 Migraine, unspecified, not intractable, without status migrainosus; G47.33 Obstructive sleep apnea (adult) (pediatric); Z79.82 Long term (current) use of aspirin; Z79.899 Other long term (current) drug therapy
CPT/HCPCS: 96372; 99282

== ENCOUNTER → 2018-12-23 16:00 | Outpatient (CLI) | payer MEDICARE, SELFPAY ==
[2018-12-05 13:20] VITALS: BMI 33.8
[2018-12-23 17:24] LABS: Absolute Lymphocyte Count 2.24 X10^3/uL (0.83-4.51); Absolute Neutrophil Count 5.4 X10^3/uL (2.0-7.7); Basophil# 0.02 X10^3/uL; Basophil% 0.2 % (0-1); Eosinophil# 0.14 X10^3/uL; Eosinophils% 1.7 % (0-5); Hematocrit 45.8 % (40-54); Hemoglobin 15.2 g/dL (13.0-16.5); Lymphocyte # 2.24 X10^3/ul (4.0); Lymphocyte % 26.5 % (19-41); Mean Corp Hgb Conc 33.2 g/dL (32-36); Mean Corpuscular Hgb 30.7 pg (27.0-32.0); Mean Corpuscular Volume 92.5 fL (80-94); Mean Platelet Vol. 10.6 fl (6.2-12.0); Monocyte# 0.62 X10^3/uL; Monocyte% 7.3 % (0-10); NRBC Flagged by Analyzer 0 % (0-5); Neutrophil # 5.35 X10^3/uL (2.7-7.7); Neutrophil % 63.4 % (47-70); Platelet Count 275 K/mm3 (150-450); RBC Distribution Width CV 13.2 % (11.6-14.6); RBC Distribution Width SD 44.3 fl (35.1-43.9); Red Blood Count 4.95 M/mm3 (4.6-6.2); White Blood Count 8.5 K/mm3 (4.4-11.0)
[2018-12-23 17:41] LABS: ALB/GLOB Ratio 1.2 RATIO (0.9-2.4); AST(SGOT) 17 U/L (15-37); Alanine Aminotransfer ALT/SGPT 38 U/L (16-61); Albumin, Serum 3.8 g/dL (3.2-5.0); Alkaline Phosphatase 26 U/L (45-117); Anion Gap 5 (5-15); BUN 17 mg/dL (7-18); BUN/Creat Ratio 17.2 RATIO (10-20); Calcium,Total 8.7 mg/dL (8.5-10.1); Chloride 104 mmol/L (98-107); Creatinine, Serum 0.99 mg/dL (0.70-1.30); EST Glomerular Filtration Rate 81 mL/min (>60); Est Glom Filt Rate - Afr Amer 98 mL/min (>60); Globulin 3.1 g/dL (2.2-4.2); Glucose 87 mg/dL (74-106); Potassium 3.8 mmol/L (3.5-5.1); Protein, Total 6.9 g/dL (6.4-8.2); Sodium Level 141 mmol/L (136-145)
== END ==
PROVIDERS: Family Provider Family Medicine; PCP Family Medicine; Referring Provider Internal Medicine Rheumatology; Visit Provider Internal Medicine Rheumatology
DX: M06.4 Inflammatory polyarthropathy (principal); M79.7 Fibromyalgia; Q66.70 Congenital pes cavus, unspecified foot; F32.89 Other specified depressive episodes; I10 Essential (primary) hypertension; G43.909 Migraine, unspecified, not intractable, without status migrainosus; N40.1 Benign prostatic hyperplasia with lower urinary tract symptoms; G47.33 Obstructive sleep apnea (adult) (pediatric); Z79.899 Other long term (current) drug therapy
CPT/HCPCS: 36415; 80053; 85025

== ENCOUNTER → 2019-02-09 07:38 | Outpatient (CLI) | payer MEDICARE, SELFPAY ==
[2019-01-22 11:32] VITALS: BMI 32.6
--- NOTE | 2019-02-09 07:38 | ECHOD_ITS ---
Reason For Study: Pre Op Procedure This was a 2D Doppler, Color Flow transthoracic echocardiogram. Exam performed in department. Left Ventricle Mild concentric left ventricular hypertrophy. Mid cavitary false tendon noted. The estimated ejection fraction is 65 %. Stage 1 diastolic dysfunction. No regional wall motion abnormalities noted. Right Ventricle Mildly dilated right ventricle. Normal systolic function. Atria The left atrium is moderately enlarged. Normal right atrium. Normal atrial septum. Mitral Valve The mitral valve is structurally normal. No prolapse or stenosis seen. Tricuspid Valve Normal tricuspid valve. Unable to estimate RV systolic pressure due to insufficient tricuspid regurgitant envelope. Aortic Valve Normal aortic valve. Trisinus/trileaflet aortic valve. Trivial aortic valve insufficiency. Pulmonic Valve Normal pulmonic valve. Great Vessels Normal aortic root. Normal arch. Normal inferior vena cava. Inferior vena cava collapse with sniff. Pericardium/Pleural No pericardial effusion. MMode/2D Measurements & Calculations LVIDd: 5.1 cm IVSd: 1.4 cm Ao root diam: 3.7 cm LVIDs: 2.6 cm LVPWd: 1.0 cm LA dimension: 3.8 cm RVDd: 4.0 cm FS: 49.2 % LAV(MOD-bp): 84.3 ml LA A4 area: 24.1 cm2 RA A4 area: 17.4 cm2 LAV(MOD-bp) Indexed: 40.7 ml/m2 LAV(MOD-sp2): 83.9 ml LAV(MOD-sp4): 79.6 ml Time Measurements MV dec time: 0.27 sec Doppler Measurements & Calculations MV E max ethan: 72.3 cm/sec Lat Peak E' Ethan: 11.5 cm/sec Med Peak E' Ethan: 8.5 cm/sec MV A max ethan: 100.8 cm/sec E/E' lat: 6.3 E/E' med: 8.5 MV E/A: 0.72 MV V2 max: 125.2 cm/sec MV P1/2t max ethan: 84.7 cm/sec Ao V2 max: 167.6 cm/sec MV max P.3 mmHg MV P1/2t: 97.7 msec Ao max P.2 mmHg MV V2 mean: 52.7 cm/sec MV dec slope: 254.0 cm/sec2 Ao V2 mean: 104.4 cm/sec MV mean P.4 mmHg MVA(P1/2t): 2.3 cm2 Ao mean P.1 mmHg MV V2 VTI: 32.6 cm Ao V2 VTI: 33.0 cm LV V1 max: 141.2 cm/sec PA V2 max: 84.7 cm/sec LV V1 max P.0 mmHg LV V1 mean P.5 mmHg LV V1 mean: 84.4 cm/sec LV V1 VTI: 30.8 cm Interpretation Summary The estimated ejection fraction is 65 %. Stage 1 diastolic dysfunction. Mildly dilated right ventricle. The left atrium is moderately enlarged. Unable to estimate RV systolic pressure due to insufficient tricuspid regurgitant envelope. Trivial aortic valve insufficiency. Compared to echo report dated 05/27/2015, LV function has remained the same, but pt now has stage I diastolic dysfunction. Ordering Physician: Moe Elizondo Referring Physician: Moe Elizondo Performed By: Chu Schaffer, [facility]
== END ==
PROVIDERS: Family Provider Family Medicine; PCP Family Medicine; Referring Provider Internal Medicine Cardiovascular Disease; Visit Provider Internal Medicine Cardiovascular Disease
DX: Z01.810 Encounter for preprocedural cardiovascular examination (principal); G47.33 Obstructive sleep apnea (adult) (pediatric); I10 Essential (primary) hypertension; I48.0 Paroxysmal atrial fibrillation
CPT/HCPCS: 93306

== ENCOUNTER → 2019-02-16 07:41 | Outpatient (CLI) | payer MEDICARE, SELFPAY ==
[2019-01-22 11:32] VITALS: BMI 32.6
--- NOTE | 2019-02-16 07:42 | STE_ITS ---
Reason For Study: PREOP, PAR AFIB Stress Results Protocol: Dobutamine Stress Echo Maximum Predicted HR: 157 bpm Target HR: 133 bpm % Maximum Predicted HR: 89 % DurationHeart Rate Stage (mm:ss) (bpm) BP Dose Comment BASELINE 62 145/95 STAGE 1 3:00 60 135/87 10.00 STAGE 2 3:00 71 151/91 20.00 STAGE 3 3:00 96 195/14434.00 STAGE 4 2:30 139 / 40.000.5 MG ATROPINE GIVEN FOR TEST RECOVERY 93 125/85 Stress Duration: 11:30 mm:ss Maximum Stress HR: 139 bpm Baseline Echocardiogram Findings The estimated ejection fraction is 65 %. Stress Echo Wall motion Data Resting WM Intermediate WM Stress WM Resting Wall Motion Wall Motion Stress No regional wall motion No regional wall motion abnormalities noted. abnormalities noted. EKG Data The baseline ECG displays normal sinus rhythm. The patient was titrated from 10 mcg to a maximum of 40 mcg of dobutamine during the stress. The maximum heart rate attained was 144 beats per minute. This was 91% of maximum predicted heart rate. During dobutamine infusion, there were no ST or T wave changes noted to suggest ischemia. No clinical angina was noted. Interpretation Summary The estimated ejection fraction is 65 %. Normal, adequate, dobutamine echocardiogram. Negative for ischemia by EKG and echocardiographic criteria. No anginal symptoms noted. Rare PAC, PVCs, and ventricular couplets noted which are nonspecific finding given dobutamine infusion. Test terminated due to the attainment target heart rate. Hypertensive blood pressure response to dobutamine. Final LVEF is 75%. Patient tolerated the procedure well. No complications. Ordering Physician: Moe Elizondo Referring Physician: Moe Elizondo Performed By: Kanchan Rolon, RUT, RVT
== END ==
PROVIDERS: Family Provider Family Medicine; PCP Family Medicine; Referring Provider Internal Medicine Cardiovascular Disease; Visit Provider Internal Medicine Cardiovascular Disease
DX: Z01.810 Encounter for preprocedural cardiovascular examination (principal); I48.0 Paroxysmal atrial fibrillation; I10 Essential (primary) hypertension; G47.33 Obstructive sleep apnea (adult) (pediatric)
CPT/HCPCS: 93017; 93350; J7040; A4216

== ENCOUNTER → 2019-02-22 14:26 | Outpatient (CLI) | payer MEDICARE, SELFPAY ==
[2019-01-22 11:32] VITALS: BMI 32.6
[2019-02-22 18:08] LABS: Hematocrit 47.4 % (40-54); Hemoglobin 15.4 g/dL (13.0-16.5); Mean Corpuscular Hgb 30.2 pg (27.0-32.0); Mean Corpuscular Volume 92.9 fL (80-94)
[2019-02-22 18:09] LABS: Absolute Lymphocyte Count 2.15 X10^3/uL (0.83-4.51); Absolute Neutrophil Count 5.1 X10^3/uL (2.0-7.7); Basophil# 0.04 X10^3/uL; Basophil% 0.5 % (0-1); Eosinophil# 0.25 X10^3/uL; Eosinophils% 3.1 % (0-5); Lymphocyte # 2.15 X10^3/ul (4.0); Lymphocyte % 26.7 % (19-41); Mean Corp Hgb Conc 32.5 g/dL (32-36); Mean Platelet Vol. 11.4 fl (6.2-12.0); Monocyte# 0.46 X10^3/uL; Monocyte% 5.7 % (0-10); NRBC Flagged by Analyzer 0 % (0-5); Neutrophil # 5.11 X10^3/uL (2.7-7.7); Neutrophil % 63.6 % (47-70); Platelet Count 228 K/mm3 (150-450); RBC Distribution Width SD 43.8 fl (35.1-43.9)
[2019-02-22 18:19] LABS: ALB/GLOB Ratio 1.2 RATIO (0.9-2.4); AST(SGOT) 13 U/L (15-37); Alanine Aminotransfer ALT/SGPT 40 U/L (16-61); Albumin, Serum 3.7 g/dL (3.2-5.0); Alkaline Phosphatase 28 U/L (45-117); Anion Gap 3 (5-15); BUN 16 mg/dL (7-18); BUN/Creat Ratio 17.1 RATIO (10-20); Calcium,Total 8.5 mg/dL (8.5-10.1); Chloride 105 mmol/L (98-107); Creatinine, Serum 0.93 mg/dL (0.70-1.30); EST Glomerular Filtration Rate 87 mL/min (>60); Est Glom Filt Rate - Afr Amer 105 mL/min (>60); Glucose 113 mg/dL (74-106); Potassium 3.6 mmol/L (3.5-5.1); Protein, Total 6.7 g/dL (6.4-8.2); Sodium Level 140 mmol/L (136-145)
== END ==
PROVIDERS: Family Provider Family Medicine; PCP Family Medicine; Referring Provider Internal Medicine Rheumatology; Visit Provider Internal Medicine Rheumatology
DX: M06.4 Inflammatory polyarthropathy (principal); M79.7 Fibromyalgia; Q66.70 Congenital pes cavus, unspecified foot; F32.89 Other specified depressive episodes; I10 Essential (primary) hypertension; G43.909 Migraine, unspecified, not intractable, without status migrainosus; N40.1 Benign prostatic hyperplasia with lower urinary tract symptoms; G47.33 Obstructive sleep apnea (adult) (pediatric); Z79.899 Other long term (current) drug therapy
CPT/HCPCS: 36415; 80053; 85025

== ENCOUNTER 2019-03-04 09:15 | Emergency (ER) | payer MEDICARE, SELFPAY ==
[2019-01-22 11:32] VITALS: BMI 32.6
[2019-03-04 09:17] VITALS: BP 148/92; PULSE 66; RESP 16; TEMP 36.8; O2SAT 98; BMI 32.9
[2019-03-04 09:25] VITALS: PULSE 65; RESP 16; O2SAT 97
--- NOTE | 2019-03-04 09:45 | ED.DCSUM_ITS ---
- ER Visit Summary Date of Service: 03/04/19 Chief Complaint: Acute right lower extremity pain History of Present Illness: The patient is a 63 M history of degenerative disc disease pending upcoming spinal surgery at the end of the month. Also has hypertension sleep apnea. Patient states that he is on neuropathic pain which causes muscular cramping in his lower extremities. He had a similar pain this morning he took a Vicodin at home and muscle relaxant without significant relief. He denies any prior history of DVT or PE. He has no swelling. No fever or redness. No trauma. He has had no recent admission or travel or immobilization. Physical Examination: Older male no acute distress vital signs are stable and afebrile. H EENT exam unremarkable. Neck he is a soft collar on. Lungs clear to auscultation bilaterally. Heart regular rhythm no murmur. Abdomen is soft a nd nontender. Normal bowel sounds no peritoneal signs. Patient is moving all 4 extremities. His calves are nontender. There is no muscle spasms. There is no edema or swelling. There is no cords. He has normal range of motion of both lower extremities. His right foot is neurovascular intact with normal touch sensation and cap refill. Normal DP pulse. He has had a prior fusion surgery to his right ankle and foot. There is no redness or change in color of his lower extremity. Neurologically is awake and alert with no focal motor deficits other than decreased range of motion of the lower extremity from prior surgery. Test Results: None Emergency Department Course and Treatment: Patient will be given 1 dose of IM Dilaudid for pain and discharged home. He has pain medications and muscle relaxants at home. Treatment Plan: Follow-up with his primary care physician as needed. Disposition: Discharge Impression: Chronic right lower extremity pain History of degenerative disc disease This note was generated with [employer] dictation software. It may contain incorrect words, spelling, and punctuation that were not noted in review of the chart prior to signing ED Disposition - Plan for ED Patient: Referrals: Shahid Yang MD [Primary Care Provider] -
--- NOTE | 2019-03-04 09:48 | ED.DEP ---
ED Disposition - Plan for ED Patient: Disposition: Home or Assisted Living Instructions: ED Chronic Pain Referrals: Shahid Yang MD [Primary Care Provider] - As Needed Additional Instructions: Follow-up with your doctor as needed. Use your pain medications at home as prescribed.
[2019-03-04 10:07] VITALS: BP 147/88; PULSE 62; RESP 16; O2SAT 96
[2019-03-04] MEDS: HYDROmorphone 1 MG/ML Syringe IM (10:08)
[2019-03-04 10:27] VITALS: BP 118/70; PULSE 57; RESP 16; TEMP 34.4
== END 2019-03-04 10:39 | disposition home or self-care (01) ==
PROVIDERS: Emergency Provider Emergency Medicine; PCP Family Medicine; Referring Provider Family Medicine
DX: M79.604 Pain in right leg (principal); G89.29 Other chronic pain; I10 Essential (primary) hypertension; Z79.82 Long term (current) use of aspirin
CPT/HCPCS: 96372; 99282

== ENCOUNTER → 2019-04-19 | Outpatient (CLI) | payer MEDICARE, SELFPAY ==
[2019-04-19 17:24] LABS: Ferritin 109 ng/mL (26-388); Iron Binding Capacity,Total 300 ug/dL (250-450)
[2019-04-20 11:19] LABS: Iron 65 ug/dL (65-175)
== END | disposition home or self-care (01) ==
LOC: LABSPEC 16:49
PROVIDERS: PCP Family Medicine; Referring Provider Family Medicine; Visit Provider Family Medicine
DX: G25.81 Restless legs syndrome (principal); I48.0 Paroxysmal atrial fibrillation
CPT/HCPCS: 82728; 83540; 83550

== ENCOUNTER → 2019-05-05 14:55 | Outpatient (CLI) | payer MEDICARE, SELFPAY ==
[2019-05-05 17:36] LABS: Absolute Lymphocyte Count 1.91 X10^3/uL (0.83-4.51); Absolute Neutrophil Count 4.5 X10^3/uL (2.0-7.7); Basophil# 0.04 X10^3/uL; Basophil% 0.6 % (0-1); Eosinophil# 0.28 X10^3/uL; Eosinophils% 3.9 % (0-5); Hematocrit 47.9 % (40-54); Hemoglobin 15.6 g/dL (13.0-16.5); Lymphocyte # 1.91 X10^3/ul (4.0); Lymphocyte % 26.4 % (19-41); Mean Corp Hgb Conc 32.6 g/dL (32-36); Mean Corpuscular Hgb 30.6 pg (27.0-32.0); Mean Corpuscular Volume 93.9 fL (80-94); Mean Platelet Vol. 10.6 fl (6.2-12.0); Monocyte# 0.51 X10^3/uL; NRBC Flagged by Analyzer 0 % (0-5); Neutrophil # 4.47 X10^3/uL (2.7-7.7); Neutrophil % 61.7 % (47-70); Platelet Count 238 K/mm3 (150-450); RBC Distribution Width CV 13.5 % (11.6-14.6); RBC Distribution Width SD 46.3 fl (35.1-43.9); White Blood Count 7.2 K/mm3 (4.4-11.0)
[2019-05-05 17:52] LABS: ALB/GLOB Ratio 1.2 RATIO (0.9-2.4); AST(SGOT) 18 U/L (15-37); Alanine Aminotransfer ALT/SGPT 38 U/L (16-61); Alkaline Phosphatase 34 U/L (45-117); Anion Gap 5 (5-15); BUN 14 mg/dL (7-18); BUN/Creat Ratio 14.7 RATIO (10-20); Calcium,Total 8.8 mg/dL (8.5-10.1); Chloride 103 mmol/L (98-107); Creatinine, Serum 0.95 mg/dL (0.70-1.30); EST Glomerular Filtration Rate 85 mL/min (>60); Est Glom Filt Rate - Afr Amer 103 mL/min (>60); Globulin 3.3 g/dL (2.2-4.2); Glucose 71 mg/dL (74-106); Potassium 3.6 mmol/L (3.5-5.1); Protein, Total 7.3 g/dL (6.4-8.2); Sodium Level 141 mmol/L (136-145)
== END ==
PROVIDERS: PCP Family Medicine; Referring Provider Internal Medicine Rheumatology; Visit Provider Internal Medicine Rheumatology
DX: M06.4 Inflammatory polyarthropathy (principal); Z79.899 Other long term (current) drug therapy; M79.7 Fibromyalgia; Q66.70 Congenital pes cavus, unspecified foot; F32.89 Other specified depressive episodes; I10 Essential (primary) hypertension; G43.909 Migraine, unspecified, not intractable, without status migrainosus; N40.1 Benign prostatic hyperplasia with lower urinary tract symptoms; G47.33 Obstructive sleep apnea (adult) (pediatric)
CPT/HCPCS: 36415; 80053; 85025

== ENCOUNTER → 2019-05-26 10:14 | Outpatient (CLI) | payer MEDICARE, SELFPAY ==
--- NOTE | 2019-05-26 10:26 | RAD_ITS ---
STUDY: X-RAY - PELVIS AND BILATERAL HIPS REASON FOR EXAM: Male, 64 years old. Chronic pain syndrome TECHNIQUE: AP view of the pelvis.? 2 views of the right hip, and 2 views of the left hip were obtained. COMPARISON: Comparison is made with prior examination dated September 04, 2018. FINDINGS: There is a non-specific bowel gas pattern. Surgical clips are seen in both inguinal areas in keeping with bilateral inguinal hernia repair with mesh. There is narrowing with cortical sclerosis and osteophyte formation of the sacroiliac joint consistent with degenerative osteoarthritic changes. Normal bilateral superior and inferior pubic rami. Normal pubic symphysis. Normal bilateral ischial tuberosities. There are osteoarthritic changes of the right femoral head with marginal osteophyte formation. Normal right acetabulum. There is moderate articular joint space narrowing of the right hip. Findings suggestive of a right femoral acetabular impingement. Normal visualized left femoral head. Normal left acetabulum. There is moderate articular joint space narrowing of the left hip. RAD/Hips B/L min 2 views w/ Pelvis IMPRESSION: Degenerative changes of both hip joints. Electronically Signed: Michael Willson, at 11:20 EDT , Service support ,
== END ==
PROVIDERS: PCP Family Medicine
DX: G89.4 Chronic pain syndrome (principal)
CPT/HCPCS: 73521

== ENCOUNTER → 2019-06-10 11:41 | Outpatient (CLI) | payer MEDICARE, SELFPAY ==
--- NOTE | 2019-06-10 11:46 | RAD_ITS ---
STUDY: X-RAY - CERVICAL SPINE REASON FOR EXAM: Male, 64 years old. S/P CERVICAL SPINAL FUSION 04-17-2019 TECHNIQUE: 5 view(s) of the cervical spine were obtained including oblique views. COMPARISON: Comparison is made with prior study dated September 02, 2016. FINDINGS: Normal anterior atlantoaxial articulation. Normal odontoid process. There is straightening of the normal cervical lordosis. Patient is status post anterior fusion at the C4-C5, C5-C6 and C7 levels. The patient is status post laminectomy and posterior fusion at the C4-C5, C5-6 and C6-C7 levels. Prosthetic disc spaces are seen as well. The soft tissue structures are unremarkable. RAD/Cerv Spine 2 or 3 Views IMPRESSION: Status post laminectomy with posterior and anterior fusion. There is good alignment. Electronically Signed: Michael Willson, at 15:50 EDT , Service support ,
== END ==
PROVIDERS: PCP Family Medicine
DX: G95.9 Disease of spinal cord, unspecified (principal); Z98.1 Arthrodesis status
CPT/HCPCS: 72040

== ENCOUNTER → 2019-06-28 20:00 | Outpatient (CLI) | payer MEDICARE, SELFPAY ==
[2019-06-24 07:56] VITALS: BMI 30.2
== END ==
PROVIDERS: PCP Family Medicine; Visit Provider Internal Medicine Cardiovascular Disease
DX: G47.33 Obstructive sleep apnea (adult) (pediatric) (principal)
CPT/HCPCS: 95810

== ENCOUNTER → 2019-07-05 10:08 | Outpatient (CLI) | payer MEDICARE, SELFPAY ==
[2019-06-24 07:56] VITALS: BMI 30.2
[2019-07-05 12:50] LABS: Anion Gap 6 (5-15); BUN 14 mg/dL (7-18); BUN/Creat Ratio 15.8 RATIO (10-20); Calcium,Total 8.8 mg/dL (8.5-10.1); Chloride 102 mmol/L (98-107); Creatinine, Serum 0.88 mg/dL (0.70-1.30); EST Glomerular Filtration Rate 92 mL/min (>60); Est Glom Filt Rate - Afr Amer 111 mL/min (>60); Glucose 97 mg/dL (74-106); Magnesium 2.4 mg/dL (1.6-2.6); Potassium 4.1 mmol/L (3.5-5.1); Sodium Level 139 mmol/L (136-145); Thyroid Stim Hormone (TSH) 2.33 uIU/mL (0.358-3.74)
== END ==
PROVIDERS: PCP Family Medicine; Referring Provider Family Medicine; Visit Provider Family Medicine
DX: R25.2 Cramp and spasm (principal)
CPT/HCPCS: 36415; 80048; 83735; 84443

== ENCOUNTER → 2019-08-04 10:49 | Outpatient (CLI) | payer MEDICARE, SELFPAY ==
[2019-07-22 10:39] VITALS: BMI 29.2
[2019-08-04 15:46] LABS: Absolute Lymphocyte Count 2.44 X10^3/uL (0.83-4.51); Absolute Neutrophil Count 5.8 X10^3/uL (2.0-7.7); Basophil# 0.03 X10^3/uL; Basophil% 0.3 % (0-1); Eosinophil# 0.18 X10^3/uL; Hematocrit 45.9 % (40-54); Hemoglobin 14.6 g/dL (13.0-16.5); Lymphocyte # 2.44 X10^3/ul (4.0); Lymphocyte % 26.9 % (19-41); Mean Corp Hgb Conc 31.8 g/dL (32-36); Mean Corpuscular Hgb 31.1 pg (27.0-32.0); Mean Corpuscular Volume 97.7 fL (80-94); Mean Platelet Vol. 10.5 fl (6.2-12.0); Monocyte# 0.59 X10^3/uL; Monocyte% 6.5 % (0-10); NRBC Flagged by Analyzer 0 % (0-5); Neutrophil % 63.9 % (47-70); Platelet Count 266 K/mm3 (150-450); RBC Distribution Width CV 13.5 % (11.6-14.6); RBC Distribution Width SD 48.2 fl (35.1-43.9); White Blood Count 9.1 K/mm3 (4.4-11.0)
[2019-08-04 16:02] LABS: ALB/GLOB Ratio 1.2 RATIO (0.9-2.4); AST(SGOT) 15 U/L (15-37); Alanine Aminotransfer ALT/SGPT 36 U/L (16-61); Albumin, Serum 3.7 g/dL (3.2-5.0); Alkaline Phosphatase 26 U/L (45-117); Anion Gap 7 (5-15); BUN 15 mg/dL (7-18); BUN/Creat Ratio 16.2 RATIO (10-20); Chloride 101 mmol/L (98-107); Creatinine, Serum 0.92 mg/dL (0.70-1.30); EST Glomerular Filtration Rate 88 mL/min (>60); Est Glom Filt Rate - Afr Amer 106 mL/min (>60); Glucose 76 mg/dL (74-106); Potassium 4.3 mmol/L (3.5-5.1); Protein, Total 6.7 g/dL (6.4-8.2); Sodium Level 140 mmol/L (136-145)
== END ==
PROVIDERS: PCP Family Medicine; Referring Provider Internal Medicine Rheumatology; Visit Provider Internal Medicine Rheumatology
DX: M06.4 Inflammatory polyarthropathy (principal); M79.7 Fibromyalgia; Q66.70 Congenital pes cavus, unspecified foot; F32.89 Other specified depressive episodes; I10 Essential (primary) hypertension; G43.909 Migraine, unspecified, not intractable, without status migrainosus; N40.1 Benign prostatic hyperplasia with lower urinary tract symptoms; G47.33 Obstructive sleep apnea (adult) (pediatric); M47.892 Other spondylosis, cervical region; Z79.899 Other long term (current) drug therapy
CPT/HCPCS: 36415; 80053; 85025

== ENCOUNTER → 2019-08-10 11:00 | Outpatient (CLI) | payer MEDICARE, SELFPAY ==
[2019-07-22 10:39] VITALS: BMI 29.2
== END ==
PROVIDERS: PCP Family Medicine; Visit Provider Nurse Practitioner Acute Care
DX: G47.33 Obstructive sleep apnea (adult) (pediatric) (principal)
CPT/HCPCS: 98960; G0463

== ENCOUNTER → 2019-08-11 20:00 | Outpatient (CLI) | payer MEDICARE, SELFPAY ==
[2019-06-24 07:56] VITALS: BMI 30.2
== END ==
PROVIDERS: PCP Family Medicine; Visit Provider Nurse Practitioner Acute Care
DX: G47.33 Obstructive sleep apnea (adult) (pediatric) (principal)
CPT/HCPCS: 95811

== ENCOUNTER → 2019-10-06 08:40 | Outpatient (CLI) | payer MEDICARE, SELFPAY ==
[2019-09-19 07:22] VITALS: BMI 24.3
== END ==
PROVIDERS: PCP Family Medicine; Visit Provider Internal Medicine Critical Care Medicine
DX: Z46.89 Encounter for fitting and adjustment of other specified devices (principal)

== ENCOUNTER → 2019-11-03 14:46 | Outpatient (CLI) | payer MEDICARE, SELFPAY ==
[2019-07-22 10:39] VITALS: BMI 29.2
[2019-09-19 07:22] VITALS: BMI 24.3
[2019-11-03 18:07] LABS: Absolute Lymphocyte Count 2.64 X10^3/uL (0.83-4.51); Absolute Neutrophil Count 5.2 X10^3/uL (2.0-7.7); Basophil# 0.03 X10^3/uL; Basophil% 0.3 % (0-1); Eosinophil# 0.28 X10^3/uL; Eosinophils% 3.3 % (0-5); Hematocrit 44.4 % (40-54); Hemoglobin 14.1 g/dL (13.0-16.5); Lymphocyte # 2.64 X10^3/ul (4.0); Lymphocyte % 30.8 % (19-41); Mean Corp Hgb Conc 31.8 g/dL (32-36); Mean Corpuscular Hgb 30.2 pg (27.0-32.0); Mean Corpuscular Volume 95.1 fL (80-94); Mean Platelet Vol. 11.4 fl (6.2-12.0); Monocyte# 0.45 X10^3/uL; Monocyte% 5.2 % (0-10); NRBC Flagged by Analyzer 0 % (0-5); Neutrophil # 5.16 X10^3/uL (2.7-7.7); Neutrophil % 60.2 % (47-70); Platelet Count 211 K/mm3 (150-450); RBC Distribution Width CV 12.8 % (11.6-14.6); RBC Distribution Width SD 44.7 fl (35.1-43.9); Red Blood Count 4.67 M/mm3 (4.6-6.2); White Blood Count 8.6 K/mm3 (4.4-11.0)
[2019-11-03 18:27] LABS: ALB/GLOB Ratio 1.4 RATIO (0.9-2.4); AST(SGOT) 16 U/L (15-37); Alanine Aminotransfer ALT/SGPT 38 U/L (16-61); Albumin, Serum 3.8 g/dL (3.2-5.0); Alkaline Phosphatase 26 U/L (45-117); Anion Gap 2 (5-15); BUN 14 mg/dL (7-18); BUN/Creat Ratio 15.7 RATIO (10-20); Calcium,Total 8.9 mg/dL (8.5-10.1); Chloride 107 mmol/L (98-107); Creatinine, Serum 0.89 mg/dL (0.70-1.30); EST Glomerular Filtration Rate 91 mL/min (>60); Est Glom Filt Rate - Afr Amer 110 mL/min (>60); Globulin 2.8 g/dL (2.2-4.2); Glucose 86 mg/dL (74-106); Potassium 3.7 mmol/L (3.5-5.1); Protein, Total 6.6 g/dL (6.4-8.2); Sodium Level 141 mmol/L (136-145)
== END ==
PROVIDERS: PCP Family Medicine; Referring Provider Internal Medicine Rheumatology; Visit Provider Internal Medicine Rheumatology
DX: M06.4 Inflammatory polyarthropathy (principal); M79.7 Fibromyalgia; Q66.70 Congenital pes cavus, unspecified foot; F32.89 Other specified depressive episodes; I10 Essential (primary) hypertension; G43.909 Migraine, unspecified, not intractable, without status migrainosus; N40.1 Benign prostatic hyperplasia with lower urinary tract symptoms; G47.33 Obstructive sleep apnea (adult) (pediatric); M47.892 Other spondylosis, cervical region; Z79.899 Other long term (current) drug therapy
CPT/HCPCS: 36415; 80053; 85025

== ENCOUNTER → 2019-11-23 | Outpatient (CLI) | payer MEDICARE, SELFPAY ==
[2019-09-19 07:22] VITALS: BMI 24.3
== END | disposition home or self-care (01) ==
LOC: LABSPEC 09:48
PROVIDERS: PCP Family Medicine; Referring Provider Family Medicine; Visit Provider Family Medicine
DX: R19.7 Diarrhea, unspecified (principal)
CPT/HCPCS: 87177; 87209; 87493; 87506

== ENCOUNTER 2019-12-15 14:37 | Outpatient (RCR) | payer MEDICARE, SELFPAY ==
[2019-09-19 07:22] VITALS: BMI 24.3
--- NOTE | 2019-12-15 15:52 | HP.PTEVAL_ITS ---
Patient's Visit Information IVAN PETERS is a 64 year old M referred to Physical Therapy by Dr. Quentin De La O MD with a diagnosis of Vestibular dysfunction. Date of Evaluation: 12/15/19 Physical Therapist: Krystian Moulton DPT, OCS, CSCS - Visit Plan Frequency: 2x /Week Duration: 4 Weeks Plan: Pt has large co pay and wanted to limit visits. Agreeable to 2 visits to teach HEP and then do at home and f/u 2 weeks later for balance check and consider pool for general strength. Back needs surgery and will not tolerate land ex for strength and he does not wish to push it. Focus on these exercises in clinic: Fw and BW weight shift. Step and recover. foam stance ec as able. VOR stance balance. sideways weight shift functionally. VOR progression. Care to be taken with back and please give pics on second visit as safety allows and will recheck 2 weeks later. - Subjective Upper spine disc replacement in upper spine in February by Dr. Dallas. Surgery has helped keep head in place and improve pain and stability of head as he could not hold it up. Has been lying down a lot since surgery. Lower spine vertebrae is no good either and needs another surgery for LB. Dr. Urbina wants him to have better equilibrium. Getting up and sitting down are challenging. Has to be careful and uses cane much of time especially on rainy days. Has OA and RA. Has chemo therapy for OA pain. Julio this weekly. Doesn't feel real steady. Morrissey s fallen 3x this year. One time in line at doctor office just fell over and could not hold self up ...very weak. Tires easily and has to lay in bed next day if overdoes it. Had neck brace for 7 months. Got denture yesteerday as jaw bone is also dissolving away. This is due to degenerative bone disease which he has. Sleep is not great due to nerve pain all over whole body. Bad pain... i could go to ER daily No more painkillers allowed due to weak heart. Gets dizzyness described as unsteady often. Described as spinning 2x in shower. Does not last long. Not employed. Spends day resting ften times in bed. Fiddlesa round the house minor renovations. Does basic ADLs on own, unsteady. has shower seat coming. Has one step with rail and is not currently a problem. Lives with who is healthy. Has wh walker, not using it. Has cane uses it often. Good days does not use cane. - Pain all over Pain Intensity (Out of 10): 9 Pain Intensity Range: 9, 10 - Objective Walks with cane in R UEsafe and I on firm flat surface. Trasnitions in out chair I with one UE. Steps reciprocal up with cane, descends with rail and cane step to using L. Max tightness present in HS and gastroc. Pt has poor sensation to gross light touch throughout legs. Strength in LE is 4- at ankles, 3+ knee extension and lacks knee ext B by 20 degrees in sitting that I can get him passively. 4- knee flexion strength. hip flexion is 3+, abd 3, ext 3 all B. reflexes 2/3 patella and 0/3 achilles lateral. Crepitus in knees and hips and intermittently trasniently painful with movments seemingly random. UE AROM to 110 elevation in UE limited due to shoulder blades are gone. Cervical AROM 20 degrees R rotationa dn 8 L rotation, nil extension and nil SB and pt says this is expected from recent neck surgery adn he will not get any more motion. Oculomotr: VOR is challenging eespecially with walking adn makes him feel weird. Saccades adn pursuit are normal, convergence is delayed. - skew eye deviation.. No dizzyness today. Tends BW immediately with ec foam stance and does not correct. - Balance Scores Functional Gait Assessment Score: 20 % Disability: 33.3400 CATSIB Score (Max score 120 seconds): 83 - Goals Goal 1:: FGA to limit future problems Goal Time Frame: 4-6 Weeks Goal 2:: Pt I in appropriate balance ex and possibly pool to limit future problems Goal Time Frame: 4-6 Weeks Goal 3:: No falls for one one weeka dn pt feel 50% safer with ambulation. Goal Time Frame: 4-6 Weeks - Rehabilitation Potential Physical Therapy Diagnosis: Vestibular deficits in balance. Rehabilitation Potential: Questionable - Anticipated Interventions Patient/Client Instruction: Educate patient on: Condition, Plan of Care For the Purpose of:: To improve balance, To improve safety with gait Therapeutic Exercise to Include: Balance training Comment: adaptation ex For the Purpose of:: To increase tolerance to activity/condition/position, To improve balance, To improve safety with gait Thank you for the opportunity to evaluate your patient. For Medicare and Medicare HMO plans, please review the plan of care and approve it. It will need to be FAXED BACK to us at [phone] for Medicare purposes. For Medicare only, by signing this I certify the plan of care. Please let me know if there are questions or concerns regarding this plan of care. Physician Signature: Date:
--- NOTE | 2020-02-28 15:40 | HP.PT.NRP ---
IVAN PETERS was seen in my office for initial evaluation on 12/15/19. The following Plan of Care was established for this patient: Initial Frequency: 2x /Week Initial Duration: 4 Weeks Patient/Client Instruction: Educate patient on: Condition, Plan of Care For the Purpose of:: To improve balance, To improve safety with gait Therapeutic Exercise to Include: Balance training For the Purpose of:: To increase tolerance to activity/condition/position, To improve balance, To improve safety with gait This patient was last seen in our office 12/15/19. Pertinent comments regarding their Physical therapy will appear below: Pt seen for eval adn POC set. He called to cancel visits stating he was going to have surgery adn would call back if needed to return. At this point, it has been over two months adn I will discontinue due to nonattendance. At this point I will be discontinuing this patient from physical therapy. I would be happy to see this patient again in the future if found appropriate by the physician. Thank you! Krystian Moulton, DPT, OCS, CSCS
== END 2019-12-15 19:00 | disposition home or self-care (01) ==
LOC: PT 14:37
PROVIDERS: PCP Family Medicine; Referring Provider Family Medicine; Visit Provider Family Medicine
DX: H93.3X9 Disorders of unspecified acoustic nerve (principal); R29.6 Repeated falls
CPT/HCPCS: 97163

== ENCOUNTER → 2020-01-25 14:16 | Outpatient (CLI) | payer MEDICARE, SELFPAY ==
[2019-09-19 07:22] VITALS: BMI 24.3
[2020-01-25 18:09] LABS: Absolute Lymphocyte Count 2.63 X10^3/uL (0.83-4.51); Absolute Neutrophil Count 4.8 X10^3/uL (2.0-7.7); Basophil# 0.03 X10^3/uL; Basophil% 0.4 % (0-1); Eosinophil# 0.21 X10^3/uL; Eosinophils% 2.5 % (0-5); Hematocrit 48.4 % (40-54); Hemoglobin 15.5 g/dL (13.0-16.5); Lymphocyte # 2.63 X10^3/ul (4.0); Lymphocyte % 31.6 % (19-41); Mean Corpuscular Volume 93.8 fL (80-94); Mean Platelet Vol. 10.8 fl (6.2-12.0); Monocyte# 0.67 X10^3/uL; NRBC Flagged by Analyzer 0 % (0-5); Neutrophil # 4.75 X10^3/uL (2.7-7.7); Platelet Count 252 K/mm3 (150-450); RBC Distribution Width CV 14.5 % (11.6-14.6); RBC Distribution Width SD 49.6 fl (35.1-43.9); Red Blood Count 5.16 M/mm3 (4.6-6.2); White Blood Count 8.3 K/mm3 (4.4-11.0)
[2020-01-25 18:28] LABS: ALB/GLOB Ratio 1.4 RATIO (0.9-2.4); AST(SGOT) 19 U/L (15-37); Alanine Aminotransfer ALT/SGPT 43 U/L (16-61); Albumin, Serum 4.1 g/dL (3.2-5.0); Alkaline Phosphatase 31 U/L (45-117); Anion Gap 6 (5-15); BUN 13 mg/dL (7-18); BUN/Creat Ratio 13.7 RATIO (10-20); Calcium,Total 9.3 mg/dL (8.5-10.1); Chloride 102 mmol/L (98-107); Creatinine, Serum 0.95 mg/dL (0.70-1.30); EST Glomerular Filtration Rate 85 mL/min (>60); Est Glom Filt Rate - Afr Amer 103 mL/min (>60); Globulin 2.9 g/dL (2.2-4.2); Glucose 75 mg/dL (74-106); Potassium 3.7 mmol/L (3.5-5.1); Sodium Level 140 mmol/L (136-145)
== END ==
PROVIDERS: PCP Family Medicine; Referring Provider Internal Medicine Rheumatology; Visit Provider Internal Medicine Rheumatology
DX: M06.4 Inflammatory polyarthropathy (principal); M79.7 Fibromyalgia; Q66.70 Congenital pes cavus, unspecified foot; F32.89 Other specified depressive episodes; I10 Essential (primary) hypertension; G43.909 Migraine, unspecified, not intractable, without status migrainosus; N40.1 Benign prostatic hyperplasia with lower urinary tract symptoms; G47.33 Obstructive sleep apnea (adult) (pediatric); M47.892 Other spondylosis, cervical region; Z79.899 Other long term (current) drug therapy
CPT/HCPCS: 36415; 80053; 85025

== ENCOUNTER → 2020-02-09 12:06 | Outpatient (CLI) | payer MEDICARE, SELFPAY ==
[2019-09-19 07:22] VITALS: BMI 24.3
--- NOTE | 2020-02-09 12:25 | MRI_ITS ---
STUDY: MRI BRAIN WITH AND WITHOUT CONTRAST REASON FOR EXAM: Male, 64 years old. dysdiadochokinesia -- posterior head pain TECHNIQUE: Standardized multiplanar fat and water weighted pulse sequences were obtained. IV dotarem 17ml was administered for the contrast portion of the examination. COMPARISON: 12/22/2016 CT of the head. FINDINGS: Normal size of the ventricles and extra-axial spaces for the patient''s age. There are a limited number of small white matter hyperintensities, distributed throughout the deep white matter tracts of the cerebral hemispheres, consistent with mild chronic white matter ischemic changes. Normal bilateral basal ganglia. Normal thalami. There is no extra-axial fluid accumulation. Normal flow voids within the major intracranial circulation suggesting patency by spin echo criteria. Normal venous enhancement. There is no enhancing intra-axial or extra-axial abnormality. Normal sella turcica, pituitary gland, infundibular stalk, optic chiasm and hypothalamus. Normal tectal plate and pineal gland. Normal midbrain, choco and medulla. Normal cerebellum. Normal basal cisterns. MRI/Brain W/WO Contrast IMPRESSION: No acute intracranial abnormality or masses. Electronically Signed: Rohan Nelson MD at 14:01 EST Tel , Service support ,
== END ==
PROVIDERS: PCP Family Medicine; Referring Provider Family Medicine; Visit Provider Family Medicine
DX: R27.8 Other lack of coordination (principal)
CPT/HCPCS: 70553; A9575

== ENCOUNTER → 2020-04-19 14:09 | Outpatient (CLI) | payer MEDICARE, SELFPAY ==
[2019-09-19 07:22] VITALS: BMI 24.3
[2020-04-19 18:01] LABS: Absolute Lymphocyte Count 2.64 X10^3/uL (0.83-4.51); Absolute Neutrophil Count 4.3 X10^3/uL (2.0-7.7); Basophil# 0.04 X10^3/uL; Basophil% 0.5 % (0-1); Eosinophil# 0.27 X10^3/uL; Eosinophils% 3.4 % (0-5); Hematocrit 44.4 % (40-54); Hemoglobin 14.5 g/dL (13.0-16.5); Lymphocyte # 2.64 X10^3/ul (4.0); Lymphocyte % 33.7 % (19-41); Mean Corp Hgb Conc 32.7 g/dL (32-36); Mean Corpuscular Hgb 31.6 pg (27.0-32.0); Mean Corpuscular Volume 96.7 fL (80-94); Mean Platelet Vol. 11.1 fl (6.2-12.0); Monocyte% 7.7 % (0-10); NRBC Flagged by Analyzer 0 % (0-5); Neutrophil # 4.26 X10^3/uL (2.7-7.7); Neutrophil % 54.4 % (47-70); Platelet Count 233 K/mm3 (150-450); RBC Distribution Width CV 13.3 % (11.6-14.6); RBC Distribution Width SD 46.7 fl (35.1-43.9); Red Blood Count 4.59 M/mm3 (4.6-6.2); White Blood Count 7.8 K/mm3 (4.4-11.0)
[2020-04-19 18:24] LABS: ALB/GLOB Ratio 1.5 RATIO (0.9-2.4); AST(SGOT) 16 U/L (15-37); Alanine Aminotransfer ALT/SGPT 29 U/L (16-61); Albumin, Serum 3.8 g/dL (3.2-5.0); Alkaline Phosphatase 30 U/L (45-117); Anion Gap 3 (5-15); BUN 16 mg/dL (7-18); BUN/Creat Ratio 16.4 RATIO (10-20); Calcium,Total 8.8 mg/dL (8.5-10.1); Chloride 107 mmol/L (98-107); Creatinine, Serum 0.98 mg/dL (0.70-1.30); EST Glomerular Filtration Rate 82 mL/min (>60); Est Glom Filt Rate - Afr Amer 99 mL/min (>60); Globulin 2.6 g/dL (2.2-4.2); Glucose 93 mg/dL (74-106); Potassium 3.7 mmol/L (3.5-5.1); Protein, Total 6.4 g/dL (6.4-8.2); Sodium Level 142 mmol/L (136-145)
== END ==
PROVIDERS: PCP Family Medicine; Referring Provider Internal Medicine Rheumatology; Visit Provider Internal Medicine Rheumatology
DX: M06.4 Inflammatory polyarthropathy (principal); M79.7 Fibromyalgia; Q66.70 Congenital pes cavus, unspecified foot; F32.89 Other specified depressive episodes; I10 Essential (primary) hypertension; G43.909 Migraine, unspecified, not intractable, without status migrainosus; N40.1 Benign prostatic hyperplasia with lower urinary tract symptoms; G47.33 Obstructive sleep apnea (adult) (pediatric); M47.892 Other spondylosis, cervical region; Z79.899 Other long term (current) drug therapy
CPT/HCPCS: 36415; 80053; 85025

== ENCOUNTER → 2020-04-20 08:34 | Outpatient (CLI) | payer MEDICARE, SELFPAY ==
[2019-09-19 07:22] VITALS: BMI 24.3
[2020-04-20 10:04] LABS: Cholesterol 177 mg/dL (200); High Density Lipoprotein 49 mg/dL; Triglycerides 82 mg/dL; Very Low Density Lipoprotein 16 mg/dL (5-40)
== END ==
PROVIDERS: PCP Family Medicine; Referring Provider Family Medicine; Visit Provider Family Medicine
DX: Z13.220 Encounter for screening for lipoid disorders (principal); I10 Essential (primary) hypertension
CPT/HCPCS: 36415; 80061

== ENCOUNTER → 2020-07-21 10:26 | Outpatient (CLI) | payer MEDICARE, SELFPAY ==
[2019-09-19 07:22] VITALS: BMI 24.3
[2020-07-21 12:22] LABS: Absolute Lymphocyte Count 2.17 X10^3/uL (0.83-4.51); Absolute Neutrophil Count 5.1 X10^3/uL (2.0-7.7); Basophil# 0.05 X10^3/uL; Basophil% 0.6 % (0-1); Eosinophils% 1.2 % (0-5); Hematocrit 47.2 % (40-54); Hemoglobin 15.1 g/dL (13.0-16.5); Lymphocyte # 2.17 X10^3/ul (0.83-4.51); Lymphocyte % 26.9 % (19-41); Mean Corpuscular Hgb 30.2 pg (27.0-32.0); Mean Corpuscular Volume 94.4 fL (80-94); Mean Platelet Vol. 10.5 fl (6.2-12.0); Monocyte# 0.63 X10^3/uL; Monocyte% 7.8 % (0-10); NRBC Flagged by Analyzer 0 % (0-5); Neutrophil # 5.09 X10^3/uL (2.7-7.7); Platelet Count 260 K/mm3 (150-450); RBC Distribution Width CV 13.1 % (11.6-14.6); RBC Distribution Width SD 45.1 fl (35.1-43.9); White Blood Count 8.1 K/mm3 (4.4-11.0)
[2020-07-21 12:47] LABS: ALB/GLOB Ratio 1.3 RATIO (0.9-2.4); AST(SGOT) 14 U/L (15-37); Alanine Aminotransfer ALT/SGPT 30 U/L (16-61); Albumin, Serum 3.9 g/dL (3.2-5.0); Alkaline Phosphatase 33 U/L (45-117); Anion Gap 4 (5-15); BUN 15 mg/dL (7-18); BUN/Creat Ratio 16.7 RATIO (10-20); Calcium,Total 8.5 mg/dL (8.5-10.1); Chloride 104 mmol/L (98-107); EST Glomerular Filtration Rate 90 mL/min (>60); Est Glom Filt Rate - Afr Amer 109 mL/min (>60); Glucose 91 mg/dL (74-106); Protein, Total 6.9 g/dL (6.4-8.2); Sodium Level 140 mmol/L (136-145)
== END ==
PROVIDERS: PCP Family Medicine; Referring Provider Internal Medicine Rheumatology; Visit Provider Internal Medicine Rheumatology
DX: M06.4 Inflammatory polyarthropathy (principal); M79.7 Fibromyalgia; F32.89 Other specified depressive episodes; I10 Essential (primary) hypertension; G43.909 Migraine, unspecified, not intractable, without status migrainosus; N40.1 Benign prostatic hyperplasia with lower urinary tract symptoms; G47.33 Obstructive sleep apnea (adult) (pediatric); M47.892 Other spondylosis, cervical region; Z79.899 Other long term (current) drug therapy
CPT/HCPCS: 36415; 80053; 85025

== ENCOUNTER → 2020-10-16 16:36 | Outpatient (CLI) | payer MEDICARE, SELFPAY ==
[2020-10-16 18:04] LABS: Absolute Lymphocyte Count 3.18 X10^3/uL (0.83-4.51); Absolute Neutrophil Count 4.6 X10^3/uL (2.0-7.7); Basophil# 0.06 X10^3/uL; Basophil% 0.7 % (0-1); Eosinophil# 0.29 X10^3/uL; Eosinophils% 3.3 % (0-5); Hematocrit 46.1 % (40-54); Hemoglobin 14.9 g/dL (13.0-16.5); Lymphocyte # 3.18 X10^3/ul (0.83-4.51); Lymphocyte % 36.3 % (19-41); Mean Corp Hgb Conc 32.3 g/dL (32-36); Mean Corpuscular Hgb 30.5 pg (27.0-32.0); Mean Corpuscular Volume 94.3 fL (80-94); Mean Platelet Vol. 10.8 fl (6.2-12.0); Monocyte# 0.58 X10^3/uL; Monocyte% 6.6 % (0-10); NRBC Flagged by Analyzer 0 % (0-5); Neutrophil % 52.6 % (47-70); Platelet Count 258 K/mm3 (150-450); RBC Distribution Width CV 13.4 % (11.6-14.6); RBC Distribution Width SD 46.2 fl (35.1-43.9); Red Blood Count 4.89 M/mm3 (4.6-6.2); White Blood Count 8.8 K/mm3 (4.4-11.0)
[2020-10-16 18:49] LABS: ALB/GLOB Ratio 1.5 RATIO (0.9-2.4); AST(SGOT) 11 U/L (15-37); Alanine Aminotransfer ALT/SGPT 31 U/L (16-61); Alkaline Phosphatase 33 U/L (45-117); Anion Gap 4 (5-15); BUN 14 mg/dL (7-18); BUN/Creat Ratio 16.5 RATIO (10-20); Calcium,Total 8.5 mg/dL (8.5-10.1); Chloride 105 mmol/L (98-107); Creatinine, Serum 0.85 mg/dL (0.70-1.30); EST Glomerular Filtration Rate 96 mL/min (>60); Est Glom Filt Rate - Afr Amer 116 mL/min (>60); Globulin 2.7 g/dL (2.2-4.2); Glucose 78 mg/dL (74-106); Potassium 3.7 mmol/L (3.5-5.1); Protein, Total 6.7 g/dL (6.4-8.2); Sodium Level 141 mmol/L (136-145)
== END ==
PROVIDERS: PCP Family Medicine; Referring Provider Internal Medicine Rheumatology; Visit Provider Internal Medicine Rheumatology
DX: M06.4 Inflammatory polyarthropathy (principal); Z79.899 Other long term (current) drug therapy; M79.7 Fibromyalgia; Q66.70 Congenital pes cavus, unspecified foot; F32.89 Other specified depressive episodes; I10 Essential (primary) hypertension; G43.909 Migraine, unspecified, not intractable, without status migrainosus; N40.1 Benign prostatic hyperplasia with lower urinary tract symptoms; G47.33 Obstructive sleep apnea (adult) (pediatric); M47.892 Other spondylosis, cervical region
CPT/HCPCS: 36415; 80053; 85025

== ENCOUNTER → 2020-11-16 | Outpatient (CLI) | payer MEDICARE, SELFPAY | END | disposition home or self-care (01) | LOC: LABSPEC 16:12 | PROVIDERS: PCP Nurse Practitioner Family; Referring Provider Nurse Practitioner Family; Visit Provider Nurse Practitioner Family | DX: Z20.822 Contact with and (suspected) exposure to COVID-19 (principal) | CPT/HCPCS: 87635; U0005; U0003 ==

== ENCOUNTER → 2020-11-24 09:58 | Outpatient (CLI) | payer MEDICARE, SELFPAY ==
[2020-11-24 13:45] LABS: Vitamin B12 431 pg/mL (211-911)
[2020-11-24 13:56] LABS: ALB/GLOB Ratio 1.1 RATIO (0.9-2.4); AST(SGOT) 15 U/L (15-37); Alanine Aminotransfer ALT/SGPT 26 U/L (16-61); Albumin, Serum 3.6 g/dL (3.2-5.0); Alkaline Phosphatase 32 U/L (45-117); Anion Gap 4 (5-15); BUN 15 mg/dL (7-18); BUN/Creat Ratio 16.5 RATIO (10-20); Calcium,Total 8.9 mg/dL (8.5-10.1); Chloride 105 mmol/L (98-107); Creatinine, Serum 0.91 mg/dL (0.70-1.30); EST Glomerular Filtration Rate 89 mL/min (>60); Est Glom Filt Rate - Afr Amer 108 mL/min (>60); Globulin 3.3 g/dL (2.2-4.2); Glucose 99 mg/dL (74-106); Protein, Total 6.9 g/dL (6.4-8.2); Sodium Level 141 mmol/L (136-145); Thyroid Stim Hormone (TSH) 2.04 uIU/mL (0.358-3.74)
[2020-11-29 01:06] LABS: VITAMIN B6 27.5 ug/L (5.3-46.7)
[2020-11-29 12:31] LABS: Thyroglobulin Antibody < 1.0 IU/mL (0.0-0.9); Thyroid Peroxidase AB < 8 IU/mL (0-34)
== END ==
PROVIDERS: PCP Nurse Practitioner Family; Referring Provider Family Medicine; Visit Provider Family Medicine
DX: M79.2 Neuralgia and neuritis, unspecified (principal); E04.1 Nontoxic single thyroid nodule
CPT/HCPCS: 36415; 80053; 82607; 84207; 84425; 84439; 84443; 86376; 86800

== ENCOUNTER → 2020-11-30 13:29 | Outpatient (CLI) | payer MEDICARE, SELFPAY ==
[2020-12-05 11:49] LABS: PSA, Free 0.07 ng/mL; PSA, Total Ultrasensitive 0.5 ng/mL (0.0-4.0)
== END ==
PROVIDERS: PCP Nurse Practitioner Family
DX: N40.1 Benign prostatic hyperplasia with lower urinary tract symptoms (principal)
CPT/HCPCS: 36415; 84153; 84154; 84402; 84403

== ENCOUNTER 2020-12-15 19:06 | Emergency (ER) | payer MEDICARE, SELFPAY ==
[2020-12-15 19:07] VITALS: BP 160/96; PULSE 85; RESP 22; TEMP 36.8; O2SAT 95; BMI 30.1
[2020-12-15 19:23] VITALS: BP 160/96; PULSE 83; RESP 16; TEMP 36.9; O2SAT 98
--- NOTE | 2020-12-15 20:35 | EDS_ITS ---
HPI History of Present Illness Chief Complaint: Complaint Narrative Narrative: Patient states that he had prostate surgery around 11 AM today. Following this a Arriaza catheter was placed. He states that this evening he felt like there was blood spurting from around the catheter. He states he does take blood thinners but has not been on them for the past week. He states that he is very concerned about the blood present and therefore called EMS to bring him in for evaluation [facility] Medical History BPH (benign prostatic hyperplasia) Degenerative disc disease Essential hypertension Fibromyalgia Migraine Obstructive sleep apnea Osteoarthritis Paroxysmal a-fib Pneumonia (~11/26/17) Pre-operative cardiovascular examination Home Medications gabapentin 800 mg PO TIDCM 05/26/15 [History Last Taken 09/02/16 08:15] tamsulosin 0.4 mg PO QHS 05/26/15 [History Last Taken 05/25/15] bupropion HCl 300 mg 24 hr tablet, extended release 300 mg PO QAM 12/11/17 [History Last Taken Unknown] aspirin 81 mg tablet,delayed release 81 mg PO DAILY 01/22/19 [History Last Taken Unknown] erenumab-aooe 70 mg/mL subcutaneous auto-injector 70 mg SC QMONTH 01/22/19 [History Last Taken Unknown] folic acid 1 mg tablet 2 mg PO DAILY tab 01/22/19 [History Last Taken Unknown] tizanidine 4 mg tablet 4 mg PO TID PRN 01/22/19 [History Last Taken Unknown] trazodone 100 mg tablet 100 mg PO QHS 01/22/19 [History Last Taken Unknown] doxazosin 2 mg tablet 4 mg PO BID tab 07/22/19 [History Last Taken Unknown] methotrexate sodium 2.5 mg tablet 15 mg PO QWEEK tab 07/22/19 [History Last Taken Unknown] pramipexole 0.125 mg tablet 0.125 mg PO QHS 07/22/19 [History Last Taken Unknown] sumatriptan succinate 100 mg tablet 100 mg PO .prn tab 07/22/19 [History Last Taken Unknown] metoprolol succinate 25 mg tablet,extended release 24 hr 25 mg PO DAILY #90 tab 09/25/20 [Rx Last Taken Unknown] lisinopril 20 mg tablet 20 mg PO BID #60 tab 12/08/20 [Rx Last Taken Unknown] atorvastatin 40 mg PO QHS 12/15/20 [History Last Taken Unknown] duloxetine 60 mg PO DAILY 12/15/20 [History Last Taken Unknown] mirabegron [Myrbetriq] 25 mg PO DAILY 12/15/20 [History Last Taken Unknown] oxycodone-acetaminophen [Endocet] 1 tab PO Q6H PRN 3 Days #12 tab 12/15/20 [Rx Last Taken Unknown] Allergy/AdvReac Type Severity Reaction Status Date / Time celecoxib [From Celebrex] Allergy Angioedema Verified 12/15/20 19:10 topiramate AdvReac Severe vomiting, Verified 12/15/20 19:10 diarrhea oxycodone HCl [From Percocet] AdvReac Vomiting Verified 12/15/20 19:10 Family History (System 12/06/20 @ 13:28 by Candelaria León) Mother Cancer Father CVA (cerebral vascular accident) Surgical History H/O arthroscopic knee surgery H/O foot surgery History of carpal tunnel release of both wrists History of hip surgery (~08/2017) History of inguinal hernia repair Social History (System 12/06/20 @ 13:28 by Candelaria León) Smoking Status: Former smoker quit date: 02/18/16 pack-years: 25 Tobacco: How many years used: 25 alcohol intake: never caffeine: No ROS ROS ED Constitutional Constitutional ED: Denies chills or fever(s) ENT ENT ED: Reports sore throat Cardiovascular Cardiovascular: Denies chest pain Respiratory/Chest Respiratory/Chest: Denies cough or dyspnea Gastrointestinal Gastrointestinal: Reports abdominal pain; Denies diarrhea, nausea or vomiting Genitourinary Genitourinary ED: Reports hematuria; Denies dysuria Musculoskeletal Musculoskeletal: Denies myalgias Integumentary Denies rash Neurologic Neurologic: Denies headache(s) Hematologic/Lymphatic Hematologic/Lymphatic: Reports easy bleeding and easy bruising EXAM Physical Exam Const Vital Signs: 12/15/20 19:07 12/15/20 19:23 12/15/20 20:51 Temperature 98.3 F 98.5 F Temperature Source Oral Oral Pulse Rate 85 83 79 Respiratory Rate 22 H 16 16 Blood Pressure 160/96 H 160/96 H 141/91 H Blood Pressure Mean 117 117 Pulse Ox 95 98 95 Oxygen Delivery Method Room Air Room Air Positive well nourished and well developed General Appearance ED: well developed Eyes PERRL and EOMs intact bilaterally Neck supple Resp normal respiratory effort and clear to auscultation bilaterally Cardio regular rate and regular rhythm GI normal to inspection, nondistended, normoactive bowel sounds, non-tender, non- distended and no masses Auscultation: normoactive bowel sounds Palpation: soft Narrative: No testicular swelling or lesions noted. No soft tissue changes to suggest David's gangrene. Patient has a Arriaza catheter in place that is draining blood-tinged urine but there is no active bleeding from the urethral meatus Extremity normal to inspection Neuro oriented x3 and CN's II-XII intact bilaterally Sensorium / Orientation: alert Motor Exam: strength 5/5 throughout Psych mental status grossly normal Skin no rashes or lesions noted MDM MDM MDM Narrative Medical decision making narrative: Patient presented to the ER with a draining Arriaza catheter and no active bleeding from around the insertion site. Secondary to this I felt no need for laboratory studies but did have the catheter flushed. The Arriaza catheter flushed easily with return of the fluid placed indicating there were no further clots present and it is in place and working properly. Therefore patient will be discharged at this time and can follow-up with his urologist for repeat evaluation Discharge Plan Triage Chief Complaint: Complaint ED Provider: Dante Butler Dx/Rx/DC Orders Clinical Impression: Hematuria, BPH (benign prostatic hyperplasia), Arriaza catheter problem Instructions: ED Arriaza Catheter, Care Prescriptions: New oxycodone-acetaminophen [Endocet] 5-325 mg tablet 1 tab PO Q6H PRN (Reason: pain) 3 Days Qty: 12 RF: 0 No Action bupropion HCl [Wellbutrin XL] 300 mg tablet extended release 24 hr 300 mg PO QAM RF: 0 sumatriptan succinate 100 mg tablet 100 mg PO .prn RF: 0 doxazosin 2 mg tablet 4 mg PO BID RF: 0 folic acid 1 mg tablet 2 mg PO DAILY RF: 0 trazodone 100 mg tablet 100 mg PO QHS RF: 0 Aimovig Autoinjector 70 mg/mL auto-injector 70 mg SC QMONTH RF: 0 aspirin [Adult Aspirin Regimen] 81 mg tablet,delayed release (DR/EC) 81 mg PO DAILY RF: 0 pramipexole 0.125 mg tablet 0.125 mg PO QHS RF: 0 tamsulosin 0.4 MG capsule,extended release 24hr 0.4 mg PO QHS RF: 0 gabapentin 800 MG tablet 800 mg PO TIDCM RF: 0 tizanidine 4 mg tablet 4 mg PO TID PRN (Reason: Pain Or Fever) RF: 0 methotrexate sodium 2.5 mg tablet 15 mg PO QWEEK RF: 0 atorvastatin 40 mg tablet 40 mg PO QHS RF: 0 duloxetine 60 mg capsule,delayed release(DR/EC) 60 mg PO DAILY RF: 0 Myrbetriq 25 mg tablet extended release 24 hr 25 mg PO DAILY RF: 0 metoprolol succinate 25 mg tablet extended release 24 hr 25 mg PO DAILY Qty: 90 RF: 3 lisinopril 20 mg tablet 20 mg PO BID Qty: 60 RF: 11 Primary Care Provider: Quentin Lopez Referrals: Quentin Lopez MD [Primary Care Provider] - Disposition Disposition: Home, Self Care Discharge Date/Time: 12/15/20 21:02
[2020-12-15] MEDS: oxyCODONE 5 MG Tablet PO (20:50)
[2020-12-15 20:51] VITALS: BP 141/91; PULSE 79; RESP 16; O2SAT 95
--- NOTE | 2020-12-15 21:41 | ED.RN ---
pt call back to ed at 2135 reports bleeding around catheter. pt reports that he is not having pressure or pain in bladder, but had some bleeding around catheter. pt educated to empty drainage bag, and monitor for urine output. to return to ed for groin pain/pressure and no passage of urine. pt verbalizes understanding and hangs up the phone.
== END 2020-12-15 21:02 | disposition home or self-care (01) ==
PROVIDERS: Emergency Provider Emergency Medicine; PCP Family Medicine
DX: T83.098A Other mechanical complication of other urinary catheter, initial encounter (principal); R31.9 Hematuria, unspecified; N40.0 Benign prostatic hyperplasia without lower urinary tract symptoms; I48.0 Paroxysmal atrial fibrillation; I10 Essential (primary) hypertension; M79.7 Fibromyalgia; M19.90 Unspecified osteoarthritis, unspecified site; Z79.82 Long term (current) use of aspirin; Z79.01 Long term (current) use of anticoagulants; Z79.899 Other long term (current) drug therapy; Z87.891 Personal history of nicotine dependence
CPT/HCPCS: 99284

== ENCOUNTER → 2021-01-08 10:12 | Outpatient (CLI) | payer MEDICARE, SELFPAY ==
[2021-01-08 12:08] LABS: Absolute Lymphocyte Count 1.74 X10^3/uL (0.83-4.51); Absolute Neutrophil Count 5.2 X10^3/uL (2.0-7.7); Basophil# 0.03 X10^3/uL; Basophil% 0.4 % (0-1); Eosinophil# 0.26 X10^3/uL; Eosinophils% 3.4 % (0-5); Hematocrit 44.1 % (40-54); Hemoglobin 14.4 g/dL (13.0-16.5); Lymphocyte # 1.74 X10^3/ul (0.83-4.51); Lymphocyte % 23.1 % (19-41); Mean Corp Hgb Conc 32.7 g/dL (32-36); Mean Corpuscular Hgb 30.8 pg (27.0-32.0); Mean Corpuscular Volume 94.4 fL (80-94); Mean Platelet Vol. 10.6 fl (6.2-12.0); Monocyte# 0.28 X10^3/uL; Monocyte% 3.7 % (0-10); NRBC Flagged by Analyzer 0 % (0-5); Platelet Count 254 K/mm3 (150-450); RBC Distribution Width CV 13.3 % (11.6-14.6); Red Blood Count 4.67 M/mm3 (4.6-6.2); White Blood Count 7.5 K/mm3 (4.4-11.0)
[2021-01-08 12:22] LABS: ALB/GLOB Ratio 1.1 RATIO (0.9-2.4); AST(SGOT) 15 U/L (15-37); Alanine Aminotransfer ALT/SGPT 28 U/L (16-61); Albumin, Serum 3.5 g/dL (3.2-5.0); Alkaline Phosphatase 33 U/L (45-117); Anion Gap 4 (5-15); BUN 12 mg/dL (7-18); Calcium,Total 8.5 mg/dL (8.5-10.1); Chloride 103 mmol/L (98-107); Creatinine, Serum 1.09 mg/dL (0.70-1.30); EST Glomerular Filtration Rate 72 mL/min (>60); Est Glom Filt Rate - Afr Amer 87 mL/min (>60); Globulin 3.2 g/dL (2.2-4.2); Glucose 199 mg/dL (74-106); Potassium 3.8 mmol/L (3.5-5.1); Protein, Total 6.7 g/dL (6.4-8.2); Sodium Level 137 mmol/L (136-145)
== END ==
PROVIDERS: PCP Family Medicine; Referring Provider Internal Medicine Rheumatology; Visit Provider Internal Medicine Rheumatology
DX: M06.4 Inflammatory polyarthropathy (principal); M79.7 Fibromyalgia; Q66.70 Congenital pes cavus, unspecified foot; F32.89 Other specified depressive episodes; I10 Essential (primary) hypertension; G43.909 Migraine, unspecified, not intractable, without status migrainosus; N40.1 Benign prostatic hyperplasia with lower urinary tract symptoms; G47.33 Obstructive sleep apnea (adult) (pediatric); M47.892 Other spondylosis, cervical region; Z79.899 Other long term (current) drug therapy
CPT/HCPCS: 36415; 80053; 85025

== ENCOUNTER 2021-02-10 22:50 | Emergency (ER) | payer MEDICARE, SELFPAY ==
[2021-02-10 22:51] VITALS: BP 173/98; PULSE 79; RESP 14; TEMP 36.8; O2SAT 95; BMI 32.7
--- NOTE | 2021-02-10 23:12 | ED.VIS.LOWEX ---
HPI History of Present Illness HPI Narrative: Patient presents with right knee pain that began approximate 3 hours prior to arrival. Patient states it is over the posterior medial aspect of his right knee. Patient denies any trauma or injury. Patient states he feels a lump in this area. Patient states he called the 1 [phone] nurse for his insurance and was told to come to the emergency department because he probably has a blood clot. Patient describes his pain as aching. Patient states it is worse whenever he touches it. Patient states nothing makes it better. Chief Complaint: Lower Extremity Injury Informant: patient Onset/Context/Timing Onset: Hours (3) Context: Sudden Onset Timing: Continuous Quality of Pain: Aching Location: Right posterior knee Worsened by: Palpation Relieved by: Nothing Associated Symptoms Associated Symptoms: Negative for Parasthesia, Weakness and Loss of Funtion [facility] Medical History (Updated 02/10/21 @ 23:[address] Krystian Wright, DO) BPH (benign prostatic hyperplasia) Degenerative disc disease Essential hypertension Fibromyalgia Migraine Obstructive sleep apnea Osteoarthritis Paroxysmal a-fib Pneumonia (~11/26/17) Pre-operative cardiovascular examination Home Medications gabapentin 800 mg PO TIDCM 05/26/15 [History Last Taken 09/02/16 08:15] tamsulosin 0.4 mg PO QHS 05/26/15 [History Last Taken 05/25/15] aspirin 81 mg tablet,delayed release 81 mg PO DAILY 01/22/19 [History Last Taken Unknown] folic acid 1 mg tablet 2 mg PO DAILY tab 01/22/19 [History Last Taken Unknown] tizanidine 4 mg tablet 4 mg PO TID PRN 01/22/19 [History Last Taken Unknown] trazodone 100 mg tablet 100 mg PO QHS 01/22/19 [History Last Taken Unknown] doxazosin 2 mg tablet 4 mg PO BID tab 07/22/19 [History Last Taken Unknown] pramipexole 0.125 mg tablet 0.125 mg PO QHS 07/22/19 [History Last Taken Unknown] sumatriptan succinate 100 mg tablet 100 mg PO .prn tab 07/22/19 [History Last Taken Unknown] metoprolol succinate 25 mg tablet,extended release 24 hr 25 mg PO DAILY #90 tab 09/25/20 [Rx Last Taken Unknown] duloxetine 60 mg PO DAILY 12/15/20 [History Last Taken Unknown] mirabegron [Myrbetriq] 25 mg PO DAILY 12/15/20 [History Last Taken Unknown] oxycodone-acetaminophen [Endocet] 1 tab PO Q6H PRN 3 Days #12 tab 12/15/20 [Rx Last Taken Unknown] lisinopril 20 mg tablet 20 mg PO BID #180 tab 02/08/21 [Rx Last Taken Unknown] loratadine 10 mg PO/SL PRN PRN 02/10/21 [History Last Taken Unknown] rivaroxaban [Xarelto] mg 02/10/21 [History Last Taken Unknown] Allergy/AdvReac Type Severity Reaction Status Date / Time celecoxib [From Celebrex] Allergy Angioedema Verified 02/10/21 22:51 topiramate AdvReac Severe vomiting, Verified 02/10/21 22:51 diarrhea oxycodone HCl [From Percocet] AdvReac Vomiting Verified 02/10/21 22:51 Family History (System 12/06/20 @ 13:28 by Candelaria León) Mother Cancer Father CVA (cerebral vascular accident) Surgical History H/O arthroscopic knee surgery H/O foot surgery History of carpal tunnel release of both wrists History of hip surgery (~08/2017) History of inguinal hernia repair Social History Smoking Status: Former smoker quit date: 02/18/16 pack-years: 25 Tobacco: How many years used: 25 alcohol intake: never caffeine: No ROS ROS ED Constitutional Constitutional ED: Denies chills or fever(s) Eyes Eyes: Denies blurry vision or change in vision ENT ENT ED: Denies rhinorrhea or sore throat Cardiovascular Cardiovascular: Denies chest pain or palpitations Respiratory/Chest Respiratory/Chest: Denies cough or dyspnea Gastrointestinal Gastrointestinal: Denies nausea or vomiting Genitourinary Genitourinary ED: Denies dysuria or hematuria Musculoskeletal Musculoskeletal: Reports back pain and neck pain Integumentary Denies abscess or rash Neurologic Neurologic: Denies headache(s) or weakness Allergic/Immunologic Allergic/Immunologic ED: Denies mouth swelling or urticaria EXAM Physical Exam Const Vital Signs: 02/10/21 22:51 Temperature 98.2 F Temperature Source Temporal Pulse Rate 79 Respiratory Rate 14 Blood Pressure 173/98 H Blood Pressure Mean 123 Pulse Ox 95 Oxygen Delivery Method Room Air Positive well nourished and well developed General Appearance ED: well developed HEENT normocephalic and atraumatic Neck full ROM Extremity Extremity Narrative: There is some mild tenderness over the posterior medial aspect of the left knee. There is no calf tenderness. There is no edema or ecchymosis noted. There is no bony crepitance or step-off. There is good range of motion of the right knee. There is a small nodule palpated in the posterior medial aspect of the right knee. There is minimal tenderness to palpation with this. Pedal pulses are equal bilateral. Sensation was intact to light touch bilaterally in the lower extremities. Neuro oriented x3, CN's II-XII intact bilaterally, moves all extremities and no sensory deficits noted Sensorium / Orientation: alert Motor Exam: strength 5/5 throughout Psych mental status grossly normal MDM MDM MDM Narrative Medical decision making narrative: Since there is no availability of venous duplex ultrasound at this time, a D-dimer was obtained. This was normal. My suspicion for DVT is low. Patient was advised of his findings. Patient was advised that this is unlikely to be a DVT. Patient was instructed to follow-up with his primary care physician in 5 to 7 days. Patient understood and was agreeable with the plan. All questions were answered. Lab Data Labs: Laboratory Results - last 24 hr 02/10/21 23:18 D-Dimer Quant (PE/DVT) 0.29 Discharge Plan Triage Chief Complaint: Lower Extremity Injury ED Provider: Krystian Wright Dx/Rx/DC Orders Clinical Impression: Posterior left knee pain Instructions: ED Pain, Acute, Uncertain Cause Prescriptions: No Action sumatriptan succinate 100 mg tablet 100 mg PO .prn RF: 0 doxazosin 2 mg tablet 4 mg PO BID RF: 0 folic acid 1 mg tablet 2 mg PO DAILY RF: 0 trazodone 100 mg tablet 100 mg PO QHS RF: 0 aspirin [Adult Aspirin Regimen] 81 mg tablet,delayed release (DR/EC) 81 mg PO DAILY RF: 0 pramipexole 0.125 mg tablet 0.125 mg PO QHS RF: 0 tamsulosin 0.4 MG capsule,extended release 24hr 0.4 mg PO QHS RF: 0 gabapentin 800 MG tablet 800 mg PO TIDCM RF: 0 tizanidine 4 mg tablet 4 mg PO TID PRN (Reason: Pain Or Fever) RF: 0 duloxetine 60 mg capsule,delayed release(DR/EC) 60 mg PO DAILY RF: 0 Myrbetriq 25 mg tablet extended release 24 hr 25 mg PO DAILY RF: 0 oxycodone-acetaminophen [Endocet] 5-325 mg tablet 1 tab PO Q6H PRN (Reason: pain) 3 Days Qty: 12 RF: 0 Xarelto 20 mg tablet RF: 0 loratadine 10 mg PO/SL PRN PRN (Reason: Allergy Symptoms) RF: 0 metoprolol succinate 25 mg tablet extended release 24 hr 25 mg PO DAILY Qty: 90 RF: 3 lisinopril 20 mg tablet 20 mg PO BID Qty: 180 RF: 3 Primary Care Provider: Quentin Lopez Referrals: Quentin Lopez MD [Primary Care Provider] - 5-7 Days Disposition Disposition: Home, Self Care
[2021-02-10 23:34] LABS: D-Dimer Quantitative (DVT/PE) 0.29 FEU/ug/m (0.27-0.49)
== END 2021-02-10 23:59 | disposition home or self-care (01) ==
PROVIDERS: Emergency Provider Emergency Medicine; PCP Family Medicine
DX: M25.562 Pain in left knee (principal); I48.0 Paroxysmal atrial fibrillation; M79.7 Fibromyalgia; M19.90 Unspecified osteoarthritis, unspecified site; Z79.01 Long term (current) use of anticoagulants; Z79.82 Long term (current) use of aspirin; Z79.899 Other long term (current) drug therapy; Z87.891 Personal history of nicotine dependence
CPT/HCPCS: 85379; 99282

== ENCOUNTER → 2021-02-13 10:13 | Outpatient (CLI) | payer MEDICARE, SELFPAY ==
--- NOTE | 2021-02-13 11:41 | VDLE_ITS ---
Reason For Study: suspected DVT RIGHT GSV is normal. CFV is compressible, spontaneous, phasic, competent and demonstrates normal augmentation. FV is compressible, spontaneous, phasic, competent and demonstrates normal augmentation. POP V is compressible, spontaneous, phasic, competent and demonstrates normal augmentation. T/P Trunk is compressible. PTV is compressible. RT PerV is compressible. Procedure This is a venous duplex using B-mode, color flow and spectral Doppler. Exam performed in department. The exam was abbreviated due to the COVID 19 protocol. The exam was diagnostic. A preliminary report was called and/or faxed to Krystle STANFORD. VL/Venous Duplex US, Unilateral Interpretation Summary Deep veins of the right lower extremity are patent and compressible segmentally . There is no evidence of right lower extremity deep vein thrombosis. Valvular competence rebekah ears intact within the proximal deep venous system on the right . The right great saphenous vein a ppears patent and compressible segmentally. Ordering Physician: Krystle Celaya Performed By: Julián Euceda RVT
== END ==
PROVIDERS: PCP Family Medicine; Referring Provider Nurse Practitioner Family; Visit Provider Nurse Practitioner Family
DX: R09.89 Other specified symptoms and signs involving the circulatory and respiratory systems (principal); M79.661 Pain in right lower leg
CPT/HCPCS: 93971

== ENCOUNTER 2021-02-27 17:24 | Outpatient (CLI) | payer MEDICARE, SELFPAY | END 2021-02-27 23:59 | disposition short-term general hospital (02) | PROVIDERS: PCP Family Medicine; Referring Provider Family Medicine; Visit Provider Family Medicine | DX: B34.9 Viral infection, unspecified (principal) | CPT/HCPCS: 87635; U0003; U0005 ==

== ENCOUNTER 2021-04-02 14:41 | Outpatient (CLI) | payer MEDICARE, SELFPAY ==
[2021-04-02 18:15] LABS: Absolute Lymphocyte Count 2.61 X10^3/uL (0.83-4.51); Absolute Neutrophil Count 5.4 X10^3/uL (2.0-7.7); Basophil# 0.04 X10^3/uL; Basophil% 0.5 % (0-1); Eosinophil# 0.25 X10^3/uL; Eosinophils% 2.8 % (0-5); Hematocrit 44.5 % (40-54); Hemoglobin 14.9 g/dL (13.0-16.5); Lymphocyte # 2.61 X10^3/ul (0.83-4.51); Lymphocyte % 29.7 % (19-41); Mean Corp Hgb Conc 33.5 g/dL (32-36); Mean Corpuscular Volume 92.7 fL (80-94); Mean Platelet Vol. 11.3 fl (6.2-12.0); Monocyte# 0.49 X10^3/uL; Monocyte% 5.6 % (0-10); NRBC Flagged by Analyzer 0 % (0-5); Neutrophil # 5.38 X10^3/uL (2.7-7.7); Neutrophil % 61.1 % (47-70); Platelet Count 233 K/mm3 (150-450); RBC Distribution Width CV 13.3 % (11.6-14.6); RBC Distribution Width SD 45.2 fl (35.1-43.9); White Blood Count 8.8 K/mm3 (4.4-11.0)
[2021-04-02 18:28] LABS: ALB/GLOB Ratio 1.3 RATIO (0.9-2.4); AST(SGOT) 17 U/L (15-37); Alanine Aminotransfer ALT/SGPT 25 U/L (16-61); Albumin, Serum 3.8 g/dL (3.2-5.0); Alkaline Phosphatase 29 U/L (45-117); Anion Gap 6 (5-15); BUN 15 mg/dL (7-18); BUN/Creat Ratio 18.1 RATIO (10-20); Chloride 105 mmol/L (98-107); Creatinine, Serum 0.83 mg/dL (0.70-1.30); EST Glomerular Filtration Rate 99 mL/min (>60); Est Glom Filt Rate - Afr Amer 120 mL/min (>60); Globulin 2.9 g/dL (2.2-4.2); Glucose 105 mg/dL (74-106); Potassium 3.7 mmol/L (3.5-5.1); Protein, Total 6.7 g/dL (6.4-8.2); Sodium Level 142 mmol/L (136-145)
== END 2021-04-02 23:59 | disposition home or self-care (01) ==
PROVIDERS: PCP Family Medicine; Referring Provider Internal Medicine Rheumatology; Visit Provider Internal Medicine Rheumatology
DX: M06.4 Inflammatory polyarthropathy (principal); M79.7 Fibromyalgia; M16.0 Bilateral primary osteoarthritis of hip; Q66.70 Congenital pes cavus, unspecified foot; F32.89 Other specified depressive episodes; I10 Essential (primary) hypertension; N40.1 Benign prostatic hyperplasia with lower urinary tract symptoms; G47.33 Obstructive sleep apnea (adult) (pediatric); M47.892 Other spondylosis, cervical region; M47.897 Other spondylosis, lumbosacral region; Z79.899 Other long term (current) drug therapy
CPT/HCPCS: 36415; 80053; 85025

== ENCOUNTER 2021-04-19 11:42 | Outpatient (CLI) | payer MEDICARE, SELFPAY ==
[2021-04-19 15:28] LABS: Absolute Lymphocyte Count 2.34 X10^3/uL (0.83-4.51); Absolute Neutrophil Count 5.1 X10^3/uL (2.0-7.7); Basophil# 0.04 X10^3/uL; Basophil% 0.5 % (0-1); Eosinophil# 0.16 X10^3/uL; Hematocrit 45.9 % (40-54); Hemoglobin 14.9 g/dL (13.0-16.5); Lymphocyte # 2.34 X10^3/ul (0.83-4.51); Lymphocyte % 28.7 % (19-41); Mean Corp Hgb Conc 32.5 g/dL (32-36); Mean Corpuscular Hgb 30.3 pg (27.0-32.0); Mean Corpuscular Volume 93.3 fL (80-94); Mean Platelet Vol. 10.7 fl (6.2-12.0); Monocyte# 0.47 X10^3/uL; Monocyte% 5.8 % (0-10); NRBC Flagged by Analyzer 0 % (0-5); Neutrophil # 5.11 X10^3/uL (2.7-7.7); Neutrophil % 62.8 % (47-70); Platelet Count 235 K/mm3 (150-450); RBC Distribution Width CV 13.6 % (11.6-14.6); RBC Distribution Width SD 46.3 fl (35.1-43.9); Red Blood Count 4.92 M/mm3 (4.6-6.2); White Blood Count 8.1 K/mm3 (4.4-11.0)
[2021-04-19 15:46] LABS: Hemoglobin A1c 5.4 % (3.8-5.6)
[2021-04-19 15:50] LABS: ALB/GLOB Ratio 1.3 RATIO (0.9-2.4); AST(SGOT) 20 U/L (15-37); Alanine Aminotransfer ALT/SGPT 35 U/L (16-61); Albumin, Serum 3.9 g/dL (3.2-5.0); Alkaline Phosphatase 29 U/L (45-117); Anion Gap 4 (5-15); BUN 17 mg/dL (7-18); BUN/Creat Ratio 17.1 RATIO (10-20); Chloride 106 mmol/L (98-107); Cholesterol 172 mg/dL (200); Creatinine, Serum 0.99 mg/dL (0.70-1.30); EST Glomerular Filtration Rate 80 mL/min (>60); Est Glom Filt Rate - Afr Amer 97 mL/min (>60); Glucose 114 mg/dL (74-106); High Density Lipoprotein 52 mg/dL; Magnesium 2.3 mg/dL (1.6-2.6); Potassium 3.8 mmol/L (3.5-5.1); Protein, Total 6.9 g/dL (6.4-8.2); Sodium Level 140 mmol/L (136-145); Thyroid Stim Hormone (TSH) 1.77 uIU/mL (0.358-3.74); Triglycerides 58 mg/dL; Very Low Density Lipoprotein 12 mg/dL (5-40)
[2021-04-19 15:58] LABS: PSA,Total - Annual Screen 1.12 ng/mL (0.00-4.00)
[2021-04-19 16:15] LABS: Vitamin D,25 Hydroxy 69.1 ng/mL
== END 2021-04-19 23:59 | disposition home or self-care (01) ==
LOC: MTLAB 11:45
PROVIDERS: PCP Family Medicine; Referring Provider Urology; Visit Provider Urology
DX: R35.1 Nocturia (principal); I48.91 Unspecified atrial fibrillation; R73.09 Other abnormal glucose; E78.5 Hyperlipidemia, unspecified; E55.9 Vitamin D deficiency, unspecified; Z12.5 Encounter for screening for malignant neoplasm of prostate
CPT/HCPCS: 36415; 80053; 80061; 82306; 83036; 83735; 84153; 84443; 85025; G0103

== ENCOUNTER → 2021-05-01 12:47 | Outpatient (CLI) | payer MEDICARE, SELFPAY ==
[2021-05-08 15:33] LABS: Copper, Serum or Plasma 76 ug/dL (69-132)
== END ==
PROVIDERS: PCP Family Medicine
DX: G43.709 Chronic migraine without aura, not intractable, without status migrainosus (principal)
CPT/HCPCS: 36415; 82525

== ENCOUNTER 2021-05-13 08:40 | Emergency (ER) | payer MEDICARE, SELFPAY ==
[2021-05-13 08:41] VITALS: BP 201/179; PULSE 90; RESP 20; TEMP 36.4; O2SAT 94; BMI 31.4
--- NOTE | 2021-05-13 09:20 | EDS_ITS ---
HPI History of Present Illness HPI Narrative: Patient presents with right knee pain that has been getting worse over the past 4 days. Patient states he had physical therapy 4 days ago and the therapist put a wrap around his knee and hyperextended his knee. Patient states his pain is gotten worse since this time. Patient had a recent right total knee replacement by Dr. Joel at the [facility] approximately 11 days ago. Patient states he has been taking his oxycodone at home with no improvement of his pain. Patient describes his pain is aching. Patient states nothing makes it worse and nothing makes it better. Chief Complaint: Lower Extremity Injury Informant: patient Occured/Mechanism Mechanism/Context: Yes other see comment below Comment: Hyperextended at physical therapy Onset/Context/Timing Onset: Days (4) Context: Sudden Onset Timing: Continuous Quality of Pain: Aching Worsened by: Nothing Relieved by: Nothing Associated Symptoms Associated Symptoms: Positive for Parasthesia (Chronic); Negative for Weakness and Loss of Funtion [facility] History BPH (benign prostatic hyperplasia) Degenerative disc disease Essential hypertension Fibromyalgia Migraine Obstructive sleep apnea Osteoarthritis Paroxysmal a-fib Pneumonia (~11/26/17) Pre-operative cardiovascular examination Home Medications gabapentin 800 mg PO BIDCM 05/26/15 [History Last Taken 09/02/16 08:15] aspirin 81 mg tablet,delayed release 81 mg PO DAILY 01/22/19 [History Last Taken Unknown] folic acid 1 mg tablet 0.8 mg PO DAILY tab 01/22/19 [History Last Taken Unknown] tizanidine 4 mg tablet 4 mg PO TID PRN 01/22/19 [History Last Taken Unknown] trazodone 100 mg tablet 100 mg PO QHS 01/22/19 [History Last Taken Unknown] pramipexole 0.125 mg tablet 0.25 mg PO QHS 07/22/19 [History Last Taken Unknown] sumatriptan succinate 100 mg tablet 100 mg PO .prn tab 07/22/19 [History Last Taken Unknown] metoprolol succinate 25 mg tablet,extended release 24 hr 25 mg PO DAILY #90 tab 09/25/20 [Rx Last Taken Unknown] duloxetine 60 mg PO DAILY 12/15/20 [History Last Taken Unknown] oxycodone-acetaminophen [Endocet] 1 tab PO Q6H PRN 3 Days #12 tab 12/15/20 [Rx Last Taken Unknown] lisinopril 20 mg tablet 20 mg PO BID #180 tab 02/08/21 [Rx Last Taken Unknown] rivaroxaban [Xarelto] 20 mg PO DAILY 02/10/21 [History Last Taken Unknown] cholecalciferol (vitamin D3) 50 mcg PO DAILY 05/13/21 [History Last Taken Unknown] fluticasone propionate 2 spray INTRANASAL DAILY 05/13/21 [History Last Taken Unknown] galcanezumab-gnlm [Emgality Pen] 120 mg SUBCUT QMONTH 05/13/21 [History Last Taken Unknown] simethicone 80 mg PO QHS 05/13/21 [History Last Taken Unknown] vibegron [Gemtesa] 75 mg PO QHS 05/13/21 [History Last Taken Unknown] Allergy/AdvReac Type Severity Reaction Status Date / Time celecoxib [From Celebrex] Allergy Angioedema Verified 05/13/21 08:46 Family History (System 12/06/20 @ 13:28 by Candelaria León) Mother Cancer Father CVA (cerebral vascular accident) Surgical History H/O arthroscopic knee surgery H/O foot surgery History of carpal tunnel release of both wrists History of hip surgery (~08/2017) History of inguinal hernia repair Hx of right knee surgery Social History Smoking Status: Former smoker quit date: 02/18/16 pack-years: 25 Tobacco: How many years used: 25 alcohol intake: never caffeine: No ROS ROS ED Constitutional Constitutional ED: Denies chills or fever(s) Eyes Eyes: Denies blurry vision or change in vision ENT ENT ED: Denies rhinorrhea or sore throat Cardiovascular Cardiovascular: Denies chest pain or palpitations Respiratory/Chest Respiratory/Chest: Denies cough or dyspnea Gastrointestinal Gastrointestinal: Denies nausea or vomiting Genitourinary Genitourinary ED: Denies dysuria or hematuria Musculoskeletal Musculoskeletal: Reports back pain and neck pain Integumentary Denies abscess or rash Neurologic Neurologic: Denies headache(s) or weakness Allergic/Immunologic Allergic/Immunologic ED: Denies mouth swelling or urticaria EXAM Physical Exam Const Vital Signs: 05/13/21 08:41 Temperature 97.6 F L Temperature Source Temporal Pulse Rate 90 Respiratory Rate 20 H Blood Pressure 201/179 H Blood Pressure Mean 186 Pulse Ox 94 Oxygen Delivery Method Room Air Positive well nourished and well developed General Appearance ED: well developed and NAD HEENT Reports moist mucous membranes Neck full ROM Extremity Extremity Narrative: There is diffuse tenderness over the right knee. There is a mild joint effusion on the right. There is no obvious deformity. Range of motion was limited in flexion and extension of the right knee secondary to pain. Pedal pulses are equal bilaterally. Sensation was intact to light touch in all digits. Capillary refill was less than 2 seconds in all digits. Extensor mechanism is intact. Neuro oriented x3, CN's II-XII intact bilaterally, moves all extremities and no sensory deficits noted Sensorium / Orientation: alert Motor Exam: strength 5/5 throughout Psych mental status grossly normal MDM MDM MDM Narrative Medical decision making narrative: Patient is given a dose of morphine here. X- rays of the right knee were obtained. There are 4 views. On my interpretation, there is no acute fracture. There is no dislocation. There is some mild soft tissue swelling and a small joint effusion. Radiologist also interpreted the x- rays and agrees. Patient is feeling better on reevaluation. Patient was instructed to continue using ice to the area. Patient was instructed to continue his oxycodone as prescribed. Patient was instructed to follow-up with his primary care physician in 5 to 7 days. Patient was instructed to follow-up with his orthopedic surgeon in 3 to 5 days. Patient understood and was agreeable with the plan. All questions were answered. Radiography Diagnostic Testing: Clinical Impression(s) from Imaging Studies Knee X-Ray 05/13/21 09:24 IMPRESSION: Status post knee arthroplasty. Soft tissue swelling and possible small joint effusion. No demonstrated acute osseous injury. Electronically Signed: Marcel Brice MD at 10:17 EDT , Discharge Plan Triage Chief Complaint: Lower Extremity Injury ED Provider: Krystian Wright Dx/Rx/DC Orders Clinical Impression: Acute pain of right knee Instructions: ED Knee Pain of Uncertain Cause Prescriptions: No Action sumatriptan succinate 100 mg tablet 100 mg PO .prn RF: 0 folic acid 1 mg tablet 0.8 mg PO DAILY RF: 0 trazodone 100 mg tablet 100 mg PO QHS RF: 0 aspirin [Adult Aspirin Regimen] 81 mg tablet,delayed release (DR/EC) 81 mg PO DAILY RF: 0 pramipexole 0.125 mg tablet 0.25 mg PO QHS RF: 0 gabapentin 800 MG tablet 800 mg PO BIDCM RF: 0 tizanidine 4 mg tablet 4 mg PO TID PRN (Reason: Pain Or Fever) RF: 0 duloxetine 60 mg capsule,delayed release(DR/EC) 60 mg PO DAILY RF: 0 oxycodone-acetaminophen [Endocet] 5-325 mg tablet 1 tab PO Q6H PRN (Reason: pain) 3 Days Qty: 12 RF: 0 Xarelto 20 mg tablet 20 mg PO DAILY RF: 0 fluticasone propionate 50 mcg/actuation spray,suspension 2 spray INTRANASAL DAILY RF: 0 cholecalciferol (vitamin D3) 50 mcg (2,000 unit) Capsule 50 mcg PO DAILY RF: 0 Emgality Pen 120 mg/mL pen injector 120 mg SUBCUT QMONTH RF: 0 simethicone 80 mg Tablet,Chewable 80 mg PO QHS RF: 0 Gemtesa 75 mg tablet 75 mg PO QHS RF: 0 metoprolol succinate 25 mg tablet extended release 24 hr 25 mg PO DAILY Qty: 90 RF: 3 lisinopril 20 mg tablet 20 mg PO BID Qty: 180 RF: 3 Primary Care Provider: Quentin Lopez Referrals: Quentin Lopez MD [Primary Care Provider] - 5-7 Days Gustavo Joel MD [NON-STAFF] - 3-5 Days Disposition Disposition: Home, Self Care
--- NOTE | 2021-05-13 09:24 | RAD_ITS ---
STUDY: X-RAY - RIGHT KNEE REASON FOR EXAM: Male, 66 years old. Injury/Pain TECHNIQUE: 4 view(s) of the knee. COMPARISON: None. FINDINGS: Normal visualized distal femur. Normal visualized proximal tibia and fibula. Normal proximal tibiofibular articulation. There is no demonstrated fracture. Status post total knee arthroplasty. Probable small effusion in the suprapatellar joint space. Prepatellar soft tissue swelling. RAD/Knee 4 or More Views IMPRESSION: Status post knee arthroplasty. Soft tissue swelling and possible small joint effusion. No demonstrated acute osseous injury. Electronically Signed: Marcel Brice MD at 10:17 EDT ,
[2021-05-13] MEDS: Morphine 4 MG/ML Syringe IM (09:40)
== END 2021-05-13 10:40 | disposition home or self-care (01) ==
PROVIDERS: Emergency Provider Emergency Medicine; PCP Family Medicine; Visit Provider Emergency Medicine
DX: M25.561 Pain in right knee (principal); I48.0 Paroxysmal atrial fibrillation; I10 Essential (primary) hypertension; M79.7 Fibromyalgia; Z79.82 Long term (current) use of aspirin; Z79.899 Other long term (current) drug therapy; Z87.891 Personal history of nicotine dependence
CPT/HCPCS: 73564; 96372; 99282

== ENCOUNTER 2021-07-06 07:00 | Outpatient (RCR) | payer MEDICARE, SELFPAY ==
--- NOTE | 2021-05-24 12:08 | HP.PTEVAL_ITS ---
Patient's Visit Information IVAN PETERS is a 66 year old M referred to Physical Therapy by Dr. Gustavo Joel MD with a diagnosis of R knee OA s/p TKA 05/03. Date of Evaluation: 05/24/21 Physical Therapist: Krystian Moulton, DPT, OCS, CSCS - Visit Plan Frequency: 2x /Week Duration: 4-6 Weeks Plan: 2x/week x 4-6 weeks for. 1. gentle patella mobs and PROM R knee. 2. rollout and stretch quad and HS, quad and HS stretches. 3. strengthen R knee and B LE. 4. Gait training decreasing AD to cane when able, Pt is to push the wh walker forward for safety right now. 5. ice as needed. - Subjective R TKA 05/03/21. bad therapy exeprience 05/10 and has been trying to get into therapy since. 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 Pain is 10/10 all day, since therapist pushed on his leg. Has oxycodone daily which don't help alot. Was not painful prior PT experience. Uses walker to get around and is slow. Was at cane at one point but not since therapist. No falls. Used cane prior to surgery due to knee pain. Has scooter at home and wh walker and walker and cane. Sleep is not great because it hurts. HEP: trying to do some HS and QS but pain prevents him. Not employed, skeletal system does not allow for employment. Spends day , when healthy, piddling around house. Lives with in one story one step to enter with rail, dresses self I, bathroom I, showers with tub and grab bars and chair I. - Pain R knee Pain Intensity (Out of 10): 10 Pain Intensity Range: 10 - Objective Walks slowly with st walker With diminshed R heel strike and L step length. Able to walk 10 feet today slow and hesitant without AD with CGA. Trasnfers chair and bed mod I using UE. Tends to hold R knee in 30 degrees flexion and rotate hip to avoid ext moment. Sensation at deficit from previous med history in B LE. Patella is stiff all directions R. Incsion is healed well with mild scarring. AROM -14 to 62 on R today and PROM to 85. girth 6 sp 21 in and at patella 18. strength R quad 13# and R HS `11#,. No signs of excessive redness heat or swelling, poor dealing with pain today. - Balance/Special Test Scores TUG Test Time Seconds: 25 WOMAC Total Score: 96 WOMAC Percentatge: 0 - Goals Goal 1:: R knee AROM 0-110 without pain or hesitation Goal Time Frame: 4-6 Weeks Goal 2:: Walk with cane community without gait deviations and steps reciprocally with one rail Goal Time Frame: 4-6 Weeks Goal 3:: Pt I in management and appropriate HEP Goal Time Frame: 4-6 Weeks Goal 4:: 10 or less score on WOMAC Goal Time Frame: 4-6 Weeks - Rehabilitation Potential Physical Therapy Diagnosis: s/p R TKA Rehabilitation Potential: Good - Anticipated Interventions Patient/Client Instruction: Educate patient on: Condition, Plan of Care For the Purpose of:: To decrease pain, To increase ROM, To improve muscle performance and motor function, To increase tolerance to activity/condition/position, To improve ability of physical actions for home/community/work/leisure, To improve gait and locomotor functions Therapeutic Exercise to Include: Strength training, Balance training, Postural training, Flexibilty training, Gait and locomotor training, Passive ROM, Active ROM For the Purpose of:: To decrease pain, To increase ROM, To improve muscle performance and motor function, To increase tolerance to activity/condition/position, To improve ability of physical actions for home/community/work/leisure Manual Therapy Techniques to Include: Manipulation, Passive ROM, Soft tissue mobilization For the Purpose of:: To decrease pain, To increase ROM Cryotherapy (ice pack, ice massage): Yes For the Purpose of:: To decrease pain, To decrease swelling/inflammation Thank you for the opportunity to evaluate your patient. For Medicare and Medicare HMO plans, please review the plan of care and approve it. It will need to be FAXED BACK to us at [phone] for Medicare purposes. For Medicare only, by signing this I certify the plan of care. Please let me know if there are questions or concerns regarding this plan of care. Physician Signature: Date:
--- NOTE | 2021-06-21 11:12 | HP.PTREVAL ---
Dr. Gustavo Joel MD, It has been my pleasure to treat IVAN PETERS over the last 9 visits for R knee OA s/p TKA 05/03. Please see the progress note below for an update on the physical therapy plan of care! Subjective: Saw surgeon yesterday and wants to hold on squat. Wants more PT 4 weeks. Did no stretching yesterday due to busyness of the day and migraines. Pain in the knee is intermittent and more of a stiffness. Some pain at times. Feels like he neeeds more straightening in his knee. Sleep is OK due to knee. Activities at home are low on volume but can do many things. It hurts when I exercise it. to 5/10 and lasts until rests. Doing HEP: prone ext stretch, uses rowing machine. Wants to work toward a final HEP of pool ex that he already knows, no other ex. Objective/Function: -6 to 119 AROM, Walks without achieving full extension at heel strike giving slight antalgia. steps are reciprocal with one rail but obviously weaker on the R. Very stiff and sore in the knee at end ranges of ROM and with OP. goals appropriate for new POC and fair prognosis. Plan Plan: 2x/week for 4 weeks for. 1. gentle rollout to quads, continue manual for extension please. This should be most of the treatment. 2. some gentle machine, /strengthening exericses including TKE and LAQ. End with prone hang. Balance/Gait/Functional tests - Balance/Special Test Scores TUG Test Time Seconds: 25 WOMAC Total Score: 51 WOMAC Percentage: 46.8800 Goals Goal 1:: R knee AROM 0-110 without pain or hesitation Goal Time Frame: 4-6 Weeks Goal Progress: needs extension Goal 2:: Walk with cane community without gait deviations and steps reciprocally with one rail Goal Time Frame: 4-6 Weeks Goal Progress: needs extension, progress Goal 3:: Pt I in management and appropriate HEP Goal Time Frame: 4-6 Weeks Goal Progress: Progressing Goal 4:: 10 or less score on WOMAC Goal Time Frame: 4-6 Weeks Goal Progress: Progressing Anticipated Interventions Patient/Client Instruction: Educate patient on: Condition, Plan of Care For the Purpose of:: To decrease pain, To increase ROM, To improve muscle performance and motor function, To increase tolerance to activity/condition/position, To improve ability of physical actions for home/community/work/leisure, To improve gait and locomotor functions Therapeutic Exercise to Include: Strength training, Balance training, Postural training, Flexibilty training, Gait and locomotor training, Passive ROM, Active ROM For the Purpose of:: To decrease pain, To increase ROM, To improve muscle performance and motor function, To increase tolerance to activity/condition/position, To improve ability of physical actions for home/community/work/leisure Manual Therapy Techniques to Include: Manipulation, Passive ROM, Soft tissue mobilization For the Purpose of:: To decrease pain, To increase ROM Cryotherapy (ice pack, ice massage): Yes For the Purpose of:: To decrease pain, To decrease swelling/inflammation Please do not hesitate to contact me at [phone] by phone or if you have questions or concerns regarding this new plan of care! Sincerely, Krystian Moulton, DPT, OCS, CSCS
--- NOTE | 2021-07-06 07:35 | HP.PTDCSUM ---
It has been my pleasure to treat IVAN PETERS referred by Dr. Gustavo Joel MD, with the diagnosis of R knee OA s/p TKA 05/03 for a total of 13 visit(s). Discharge Date: 07/06/21 Please see the following information for a summary of their discharge status. Subjective: Doing OK, pain at times 2/10. Will continue working on motion but wishes to be done with PT. Cancelled last couple visits and told me this today at end of session. R knee Pain Intensity (Out of 10): 2 % Improvement: 80 Objective/Function: -3 degrees to 120. Walks avoiding full extension until cued. Steps are good. Goal 1:: R knee AROM 0-110 without pain or hesitation Goal Progress: Progressing Goal 2:: Walk with cane community without gait deviations and steps reciprocally with one rail Goal Progress: no cane needed. Goal 3:: Pt I in management and appropriate HEP Goal Progress: Goal Met Goal 4:: 10 or less score on WOMAC Goal Progress: ??? Plan: d/c Discharge Comments: no f/u scheduled with doctor. If there are questions or concerns regarding this patient's physical therapy, please feel free to call me at [phone]. Thank you for the referral of this patient. Sincerely, Krystian Moulton, DPT, OCS, CSCS Balance/Gait/Functional tests - Balance/Special Test Scores TUG Test Time Seconds: 25 WOMAC Total Score: 51 WOMAC Percentage: 46.8800
== END 2021-07-06 19:00 | disposition home or self-care (01) ==
LOC: PT 07:00
PROVIDERS: PCP Family Medicine; Referring Provider Orthopaedic Surgery; Visit Provider Orthopaedic Surgery
DX: M17.11 Unilateral primary osteoarthritis, right knee (principal)
CPT/HCPCS: 97110; 97140; 97162; 97530

== ENCOUNTER → 2021-07-06 | Outpatient (CLI) | payer MEDICARE, SELFPAY ==
[2021-07-06 10:41] LABS: Absolute Lymphocyte Count 2.29 X10^3/uL (0.83-4.51); Absolute Neutrophil Count 5.4 X10^3/uL (2.0-7.7); Basophil# 0.03 X10^3/uL; Basophil% 0.4 % (0-1); Eosinophil# 0.14 X10^3/uL; Eosinophils% 1.7 % (0-5); Hematocrit 44.6 % (40-54); Hemoglobin 14.7 g/dL (13.0-16.5); Lymphocyte # 2.29 X10^3/ul (0.83-4.51); Lymphocyte % 27.4 % (19-41); Mean Corpuscular Hgb 30.3 pg (27.0-32.0); Mean Platelet Vol. 10.7 fl (6.2-12.0); Monocyte# 0.46 X10^3/uL; Monocyte% 5.5 % (0-10); NRBC Flagged by Analyzer 0 % (0-5); Neutrophil % 64.6 % (47-70); Platelet Count 291 K/mm3 (150-450); RBC Distribution Width CV 13.5 % (11.6-14.6); Red Blood Count 4.85 M/mm3 (4.6-6.2); White Blood Count 8.4 K/mm3 (4.4-11.0)
[2021-07-06 10:57] LABS: ALB/GLOB Ratio 1.3 RATIO (0.9-2.4); AST(SGOT) 15 U/L (15-37); Alanine Aminotransfer ALT/SGPT 27 U/L (16-61); Albumin, Serum 3.9 g/dL (3.2-5.0); Alkaline Phosphatase 28 U/L (45-117); Anion Gap 5 (5-15); BUN 18 mg/dL (7-18); BUN/Creat Ratio 18.8 RATIO (10-20); Calcium,Total 8.9 mg/dL (8.5-10.1); Chloride 106 mmol/L (98-107); Creatinine, Serum 0.96 mg/dL (0.70-1.30); EST Glomerular Filtration Rate 84 mL/min (>60); Est Glom Filt Rate - Afr Amer 101 mL/min (>60); Glucose 125 mg/dL (74-106); Protein, Total 6.9 g/dL (6.4-8.2); Sodium Level 140 mmol/L (136-145)
== END | disposition home or self-care (01) ==
LOC: MTLAB 08:06
PROVIDERS: PCP Family Medicine; Referring Provider Internal Medicine Rheumatology; Visit Provider Internal Medicine Rheumatology
DX: M06.4 Inflammatory polyarthropathy (principal); M79.7 Fibromyalgia; M16.0 Bilateral primary osteoarthritis of hip; Q66.70 Congenital pes cavus, unspecified foot; F32.89 Other specified depressive episodes; I10 Essential (primary) hypertension; G43.909 Migraine, unspecified, not intractable, without status migrainosus; N40.1 Benign prostatic hyperplasia with lower urinary tract symptoms; G47.33 Obstructive sleep apnea (adult) (pediatric); M47.892 Other spondylosis, cervical region; M47.897 Other spondylosis, lumbosacral region; Z98.1 Arthrodesis status; Z79.899 Other long term (current) drug therapy
CPT/HCPCS: 36415; 80053; 85025

== ENCOUNTER → 2021-08-28 | Outpatient (CLI) | payer MEDICARE, SELFPAY ==
[2021-08-28 17:57] LABS: Absolute Lymphocyte Count 2.38 X10^3/uL (0.83-4.51); Absolute Neutrophil Count 6.1 X10^3/uL (2.0-7.7); Basophil# 0.04 X10^3/uL; Basophil% 0.4 % (0-1); Eosinophil# 0.14 X10^3/uL; Eosinophils% 1.5 % (0-5); Hemoglobin 14.8 g/dL (13.0-16.5); Lymphocyte # 2.38 X10^3/ul (0.83-4.51); Lymphocyte % 25.9 % (19-41); Mean Corp Hgb Conc 32.9 g/dL (32-36); Mean Corpuscular Volume 91.3 fL (80-94); Mean Platelet Vol. 11.2 fl (6.2-12.0); Monocyte# 0.51 X10^3/uL; Monocyte% 5.5 % (0-10); NRBC Flagged by Analyzer 0 % (0-5); Neutrophil # 6.11 X10^3/uL (2.7-7.7); Neutrophil % 66.5 % (47-70); Platelet Count 258 K/mm3 (150-450); RBC Distribution Width CV 14.7 % (11.6-14.6); Red Blood Count 4.93 M/mm3 (4.6-6.2); White Blood Count 9.2 K/mm3 (4.4-11.0)
[2021-08-28 18:34] LABS: ALB/GLOB Ratio 1.3 RATIO (0.9-2.4); AST(SGOT) 18 U/L (15-37); Alanine Aminotransfer ALT/SGPT 24 U/L (16-61); Alkaline Phosphatase 31 U/L (45-117); Anion Gap 5 (5-15); BUN 21 mg/dL (7-18); BUN/Creat Ratio 22.8 RATIO (10-20); Calcium,Total 9.1 mg/dL (8.5-10.1); Chloride 105 mmol/L (98-107); Cholesterol 142 mg/dL (200); Creatinine, Serum 0.92 mg/dL (0.70-1.30); EST Glomerular Filtration Rate 87 mL/min (>60); Est Glom Filt Rate - Afr Amer 105 mL/min (>60); Glucose 108 mg/dL (74-106); High Density Lipoprotein 44 mg/dL; Magnesium 2.4 mg/dL (1.6-2.6); Potassium 3.8 mmol/L (3.5-5.1); Sodium Level 140 mmol/L (136-145); Thyroid Stim Hormone (TSH) 0.97 uIU/mL (0.358-3.74); Triglycerides 139 mg/dL; Very Low Density Lipoprotein 28 mg/dL (5-40)
[2021-08-28 19:21] LABS: Vitamin D,25 Hydroxy 69.6 ng/mL
[2021-08-29 09:25] LABS: Hemoglobin A1c 5.7 % (3.8-5.6)
== END | disposition home or self-care (01) ==
PROVIDERS: PCP Family Medicine; Referring Provider Family Medicine; Visit Provider Family Medicine
DX: R73.09 Other abnormal glucose (principal); I48.91 Unspecified atrial fibrillation; E78.5 Hyperlipidemia, unspecified; E55.9 Vitamin D deficiency, unspecified
CPT/HCPCS: 36415; 80053; 80061; 82306; 83036; 83735; 84443; 85025